=== PATIENT | female | born 1960 | race Caucasian/White ===

== ENCOUNTER 2020-10-24 10:18 | Outpatient (REF) | payer BC, SELFPAY ==
[2020-10-24 10:56] LABS: MANUAL DIFF FLAG NO
[2020-10-24 11:01] LABS: Basophils Percent Auto 0.5 % (0-2); Eosinophils Absolute Auto 0.2 X10*3/uL (0.0-0.4); Hematocrit 40.7 % (37-47); Hemoglobin 13.7 g/dl (12.0-16.0); Imm Gran Abs Auto 0.03 X10*3/uL (0.00-0.03); Imm Gran Pct Auto 0.4 % (0.0-0.4); Lymphocytes Absolute Auto 1.2 X10*3/uL (1.2-4.9); Lymphocytes Percent Auto 15.5 % (20-40); Mean Corpuscular HGB Conc 33.7 g/dl (31.0-35.0); Mean Corpuscular Hemoglobin 29.5 pg (27.0-33.0); Mean Corpuscular Volume 87.5 fL (80-98); Mean Platelet Volume 9.5 fL (9.4-12.3); Monocytes Absolute Auto 0.5 X10*3/uL (0.1-1.2); Monocytes Percent Auto 6.1 % (2-11); Neutrophils Absolute Auto 5.7 X10*3/uL (2.0-8.3); Neutrophils Percent Auto 74.5 % (45-73); Platelet Count 249 X10*3/uL (160-400); Red Blood Count 4.65 X10*6/uL (4.20-5.50); Red Cell Distribution Width 12.5 % (11.0-16.0); White Blood Count 7.6 X10*3/uL (4.8-10.8)
[2020-10-24 11:20] LABS: Alanine Aminotransferase 21 U/L (0-31); Albumin Level 4.3 g/dL (3.5-5.0); Alkaline Phosphatase 110 U/L (39-117); Anion Gap 14 (12-20); Aspartate Amino Transferase 22 U/L (5-31); Bilirubin Total 0.5 mg/dL (0.0-1.0); Blood Urea Nitrogen 15 mg/dL (9-16); C Reactive Protein 0.56 mg/dL (< or = 0.50); Calcium 9.2 mg/dL (8.4-10.2); Carbon Dioxide 27 mmol/L (22-29); Chloride 105 mmol/L (96-108); Estimated Glomerular Filt Rate > 60; Glucose Random 125 mg/dL (60-115); Potassium 4.5 mmol/l (3.3-5.1); Sodium 141 mmol/L (135-145); Total Protein 7.4 g/dL (6.5-8.0)
[2020-10-24 11:52] LABS: Erythrocyte Sedimentation Rate 13 MM/HR (0-20)
== END 2020-10-24 10:19 | disposition home or self-care (01) ==
LOC: HO.LAB 10:18
PROVIDERS: PCP Internal Medicine; Visit Provider Internal Medicine Rheumatology
DX: M05.9 Rheumatoid arthritis with rheumatoid factor, unspecified (principal)
CPT/HCPCS: 36415; 80053; 85025; 85652; 86140

== ENCOUNTER 2021-01-13 12:05 | Outpatient (REF) | payer BC, SELFPAY ==
[2021-01-13 12:58] LABS: MANUAL DIFF FLAG NO
[2021-01-13 13:06] LABS: Basophils Percent Auto 0.3 % (0-2); Eosinophils Absolute Auto 0.2 X10*3/uL (0.0-0.4); Eosinophils Percent Auto 3.4 % (0-4); Hematocrit 38.3 % (37-47); Hemoglobin 12.5 g/dl (12.0-16.0); Imm Gran Abs Auto 0.02 X10*3/uL (0.00-0.03); Imm Gran Pct Auto 0.3 % (0.0-0.4); Lymphocytes Absolute Auto 1.1 X10*3/uL (1.2-4.9); Lymphocytes Percent Auto 16.7 % (20-40); Mean Corpuscular HGB Conc 32.6 g/dl (31.0-35.0); Mean Corpuscular Hemoglobin 28.6 pg (27.0-33.0); Mean Corpuscular Volume 87.6 fL (80-98); Mean Platelet Volume 9.8 fL (9.4-12.3); Monocytes Absolute Auto 0.5 X10*3/uL (0.1-1.2); Monocytes Percent Auto 7.5 % (2-11); Neutrophils Absolute Auto 4.9 X10*3/uL (2.0-8.3); Neutrophils Percent Auto 71.8 % (45-73); Platelet Count 252 X10*3/uL (160-400); Red Blood Count 4.37 X10*6/uL (4.20-5.50); Red Cell Distribution Width 12.6 % (11.0-16.0); White Blood Count 6.8 X10*3/uL (4.8-10.8)
[2021-01-13 14:11] LABS: Erythrocyte Sedimentation Rate 29 MM/HR (0-20)
[2021-01-13 18:21] LABS: Alanine Aminotransferase 19 U/L (0-31); Alkaline Phosphatase 135 U/L (39-117); Anion Gap 11 (12-20); Aspartate Amino Transferase 22 U/L (5-31); Bilirubin Total 0.6 mg/dL (0.0-1.0); Blood Urea Nitrogen 8 mg/dL (9-16); Calcium 9.2 mg/dL (8.4-10.2); Carbon Dioxide 28 mmol/L (22-29); Chloride 105 mmol/L (96-108); Estimated Glomerular Filt Rate > 60; Glucose Random 105 mg/dL (60-115); Potassium 4.4 mmol/L (3.3-5.1); Sodium 140 mmol/L (135-145); Total Protein 7.3 g/dL (6.5-8.0)
[2021-01-14 13:52] LABS: CRP High Sensitivity >10.0 mg/L
== END 2021-01-13 12:06 | disposition home or self-care (01) ==
LOC: HO.LAB 12:05
PROVIDERS: Absent Provider Internal Medicine Rheumatology; PCP Internal Medicine; Visit Provider Internal Medicine Rheumatology
DX: Z00.00 Encounter for general adult medical examination without abnormal findings (principal); M05.9 Rheumatoid arthritis with rheumatoid factor, unspecified; E03.9 Hypothyroidism, unspecified; R73.01 Impaired fasting glucose
CPT/HCPCS: 36415; 80053; 80061; 84443; 85025; 85652; 86140; 86141

== ENCOUNTER 2021-05-10 12:10 | Outpatient (REF) | payer BC, SELFPAY ==
--- NOTE | ~2021-05-10 | MM_ITS ---
EXAMINATION: MM DIAGNOSTIC DIGITAL BREAST TOMOSYNTHESIS, BILATERAL CLINICAL INFORMATION: Due for yearly. Follow-up probable benign calcifications identified in number left breast upper outer quadrant mid depth. 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 The lifetime risk of breast cancer based on the Tyrer-Cuzick Model is 27%. COMPARISON: Mammography: 05/06/2020, 09/02/2019, 02/28/2019, 02/18/2019 (BI-RADS 0), 12/25/2017 TECHNIQUE: Digital breast tomosynthesis is performed in both the craniocaudal and mediolateral oblique views along with computer-aided detection (CAD). Synthesized 2D images are generated from the tomosynthesis. Additional magnification views left breast are obtained in the CC and ML x2 projections. FINDINGS: There are scattered areas of fibroglandular density (ACR BI-RADS breast composition Category b). There are post surgical changes right breast with stable scarring mid upper outer quadrant. Parenchymal pattern is similar to prior studies. Neither breast shows interval mass or architectural abnormality or developing density. Calcifications for follow-up left breast mid upper outer quadrant are unremarkable and stable and now considered benign. No increasing calcifications. There are benign calcifications scattered outer left and central and outer right breast. There is digital processing artifact on synthesized left MLO view without correlate on tomography or additional magnification view. Results are provided to the patient at time of visit by the technologist. MM/MM tomosynthesis diagnostic BI IMPRESSION: 1. No mammographic evidence of malignancy. 2. Stable postsurgical changes upper outer right breast. 3. Left breast calcifications for follow-up are stable from prior diagnostic studies and considered to be benign. ASSESSMENT: BI-RADS 2: Benign RECOMMENDATION: 1. Routine annual mammography screening. 2. The lifetime risk of breast cancer based on the Tyrer-Cuzick Model is 27%. Additional annual adjunct screening with breast MRI may be of benefit in women with a risk score of 20% or greater. This patient's information was entered into a reminder system with a target due date for their next mammogram.
== END 2021-05-10 12:11 | disposition home or self-care (01) ==
LOC: HO.MAMMO 12:10
PROVIDERS: Visit Provider Internal Medicine
DX: R92.1 Mammographic calcification found on diagnostic imaging of breast (principal)
CPT/HCPCS: 77062; 77066

== ENCOUNTER 2021-06-05 09:58 | Outpatient (REF) | payer BC, SELFPAY ==
[2021-06-05 10:26] LABS: MANUAL DIFF FLAG NO
[2021-06-05 10:43] LABS: Basophils Percent Auto 0.4 % (0-2); Eosinophils Absolute Auto 0.2 X10*3/uL (0.0-0.4); Eosinophils Percent Auto 2.8 % (0-4); Hematocrit 39.2 % (37-47); Hemoglobin 13.1 g/dl (12.0-16.0); Imm Gran Abs Auto 0.01 X10*3/uL (0.00-0.03); Imm Gran Pct Auto 0.1 % (0.0-0.4); Lymphocytes Absolute Auto 1.2 X10*3/uL (1.2-4.9); Lymphocytes Percent Auto 16.7 % (20-40); Mean Corpuscular HGB Conc 33.4 g/dl (31.0-35.0); Mean Corpuscular Hemoglobin 28.5 pg (27.0-33.0); Mean Corpuscular Volume 85.4 fL (80-98); Mean Platelet Volume 9.9 fL (9.4-12.3); Monocytes Absolute Auto 0.5 X10*3/uL (0.1-1.2); Monocytes Percent Auto 7.4 % (2-11); Neutrophils Absolute Auto 5.2 X10*3/uL (2.0-8.3); Neutrophils Percent Auto 72.6 % (45-73); Platelet Count 266 X10*3/uL (160-400); Red Blood Count 4.59 X10*6/uL (4.20-5.50); Red Cell Distribution Width 12.5 % (11.0-16.0); White Blood Count 7.2 X10*3/uL (4.8-10.8)
[2021-06-05 10:56] LABS: Alanine Aminotransferase 16 U/L (0-31); Alkaline Phosphatase 129 U/L (39-117); Anion Gap 12 (12-20); Aspartate Amino Transferase 22 U/L (5-31); Bilirubin Total 0.5 mg/dL (0.0-1.0); Blood Urea Nitrogen 8 mg/dL (9-16); Calcium 9.2 mg/dL (8.4-10.2); Carbon Dioxide 25 mmol/L (22-29); Chloride 107 mmol/L (96-108); Estimated Glomerular Filt Rate > 60; Glucose Random 117 mg/dL (60-115); Potassium 4.2 mmol/L (3.3-5.1); Sodium 140 mmol/L (135-145); Total Protein 7.5 g/dL (6.5-8.0)
[2021-06-05 10:58] LABS: Cholesterol 168 mg/dL; HDL Cholesterol 51 mg/dL; LDL Cholesterol Calculated 104 mg/dl; Triglycerides 65 mg/dL
[2021-06-05 11:20] LABS: TSH reflex Free T4 0.08 uIU/mL (0.32-4.0); Vitamin D 25-OH Total 43.3 ng/mL (>30)
[2021-06-05 12:00] LABS: Free T4 (Free Thyroxine) 1.73 ng/dL (0.71-1.85)
[2021-06-05 12:25] LABS: Erythrocyte Sedimentation Rate 23 MM/HR (0-20)
[2021-06-08 04:42] LABS: CRP High Sensitivity 8.8 mg/L
== END 2021-06-05 09:59 | disposition home or self-care (01) ==
LOC: HO.LAB 09:58
PROVIDERS: Absent Provider Internal Medicine; PCP Internal Medicine; Visit Provider Internal Medicine Rheumatology
DX: E78.2 Mixed hyperlipidemia (principal); E55.9 Vitamin D deficiency, unspecified; M05.9 Rheumatoid arthritis with rheumatoid factor, unspecified
CPT/HCPCS: 36415; 80053; 80061; 82306; 84439; 84443; 85025; 85652; 86141

== ENCOUNTER 2021-07-05 15:58 | Outpatient (REF) | payer BC, SELFPAY ==
[2021-07-05 17:40] LABS: Thyroid Stimulating Hormone 0.14 uIU/mL (0.32-4.0)
== END 2021-07-05 15:59 | disposition home or self-care (01) ==
LOC: HO.LAB 15:58
PROVIDERS: PCP Internal Medicine; Visit Provider Internal Medicine
DX: E03.9 Hypothyroidism, unspecified (principal)
CPT/HCPCS: 36415; 84443

== ENCOUNTER 2021-09-11 10:33 | Outpatient (REF) | payer BC, SELFPAY ==
[2021-09-11 10:50] LABS: MANUAL DIFF FLAG NO
[2021-09-11 11:15] LABS: Basophils Percent Auto 0.3 % (0-2); Eosinophils Absolute Auto 0.1 X10*3/uL (0.0-0.4); Eosinophils Percent Auto 1.3 % (0-4); Hematocrit 39.7 % (37.0-47.0); Hemoglobin 13.2 g/dl (12.0-16.0); Imm Gran Abs Auto 0.01 X10*3/uL (0.00-0.03); Imm Gran Pct Auto 0.1 % (0.0-0.4); Lymphocytes Absolute Auto 1.2 X10*3/uL (1.2-4.9); Lymphocytes Percent Auto 16.7 % (20-40); Mean Corpuscular HGB Conc 33.2 g/dl (31.0-35.0); Mean Corpuscular Hemoglobin 29.1 pg (27.0-33.0); Mean Corpuscular Volume 87.6 fL (80.0-98.0); Mean Platelet Volume 9.7 fL (9.4-12.3); Monocytes Absolute Auto 0.4 X10*3/uL (0.1-1.2); Monocytes Percent Auto 6.3 % (2-11); Neutrophils Absolute Auto 5.2 x10*3/uL (2.0-8.3); Neutrophils Percent Auto 75.3 % (45-73); Platelet Count 233 X10*3/uL (160-400); Red Blood Count 4.53 X10*6/uL (4.20-5.50); Red Cell Distribution Width 13.2 % (11.0-16.0); White Blood Count 6.9 X10*3/uL (4.8-10.8)
[2021-09-11 12:00] LABS: Erythrocyte Sedimentation Rate 13 MM/HR (0-20)
[2021-09-11 12:16] LABS: Alanine Aminotransferase 15 U/L (0-31); Albumin Level 4.1 g/dL (3.5-5.0); Alkaline Phosphatase 108 U/L (39-117); Anion Gap 11 (12-20); Aspartate Amino Transferase 22 U/L (5-31); Bilirubin Total 0.6 mg/dL (0.0-1.0); Blood Urea Nitrogen 10 mg/dL (9-16); C Reactive Protein 0.34 mg/dL (< or = 0.50); Calcium 9.5 mg/dL (8.4-10.2); Carbon Dioxide 26 mmol/L (22-29); Chloride 107 mmol/L (96-108); Estimated Glomerular Filt Rate > 60; Glucose Random 114 mg/dL (60-115); Potassium 4.2 mmol/L (3.3-5.1); Sodium 140 mmol/L (135-145); Total Protein 7.3 g/dL (6.5-8.0)
[2021-09-11 12:37] LABS: Thyroid Stimulating Hormone 0.46 uIU/mL (0.32-4.0)
== END 2021-09-11 10:34 | disposition home or self-care (01) ==
LOC: HO.LAB 10:33
PROVIDERS: Absent Provider Internal Medicine Rheumatology; PCP Internal Medicine; Visit Provider Internal Medicine
DX: E03.9 Hypothyroidism, unspecified (principal); M05.9 Rheumatoid arthritis with rheumatoid factor, unspecified
CPT/HCPCS: 36415; 80053; 84443; 85025; 85652; 86140

== ENCOUNTER 2022-05-11 08:02 | Outpatient (REF) | payer BC, SELFPAY ==
--- NOTE | ~2022-05-11 | MM_ITS ---
EXAMINATION: MM SCREENING DIGITAL BREAST TOMOSYNTHESIS, BILATERAL CLINICAL INFORMATION: Screening. Asymptomatic. 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 COMPARISON: Mammography: 05/10/2021, 05/06/2020, 09/02/2019, 02/28/2019, 02/18/2019, 12/25/2017 TECHNIQUE: Digital breast tomosynthesis is performed in both the craniocaudal and mediolateral oblique views along with computer-aided detection (CAD). Synthesized 2D images are generated from the tomosynthesis. FINDINGS: There are scattered areas of fibroglandular density (ACR BI-RADS breast composition Category b). Parenchymal pattern is similar to prior studies. There is stable chronic scarring mid upper outer right breast consistent with the prior excisional biopsy. Fine digital processing artifact pseudo calcification is present on lateral side of scar on synthesized CC view without tomography or MLO correlate. Neither breast shows interval mass or architectural abnormality or abnormal calcifications. The axilla are unremarkable. MM/MM tomosynthesis screening BI IMPRESSION: No significant changes from prior exams. Postsurgical changes right breast. ASSESSMENT: BI-RADS 2: Benign RECOMMENDATION: Routine annual mammography screening. This patient's information was entered into a reminder system with a target due date for their next mammogram.
== END 2022-05-11 08:03 | disposition home or self-care (01) ==
LOC: HO.MAMMO 08:02
PROVIDERS: PCP Internal Medicine; Visit Provider Internal Medicine
DX: Z12.31 Encounter for screening mammogram for malignant neoplasm of breast (principal)
CPT/HCPCS: 77063; 77067

== ENCOUNTER → 2023-06-19 08:00 | Outpatient (BNV) | payer BC, SELFPAY | PROVIDERS: PCP Internal Medicine; Visit Provider Radiology Diagnostic Radiology | DX: Z12.31 Encounter for screening mammogram for malignant neoplasm of breast (principal) | CPT/HCPCS: 77063; 77067 ==

== ENCOUNTER 2023-06-19 08:04 | Outpatient (REF) | payer BC, SELFPAY ==
--- NOTE | ~2023-06-19 | MM_ITS ---
EXAMINATION: MM SCREENING DIGITAL BREAST TOMOSYNTHESIS, BILATERAL CLINICAL INFORMATION: Screening. Asymptomatic. 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 COMPARISON: Mammography: 05/11/2022, 05/10/2021, 05/06/2020, 09/02/2019, 02/28/2019, 02/18/2019, 12/25/2017 TECHNIQUE: Digital breast tomosynthesis is performed in both the craniocaudal and mediolateral oblique views along with computer-aided detection (CAD). Synthesized 2D images are generated from the tomosynthesis. FINDINGS: There are scattered areas of fibroglandular density (ACR BI-RADS breast composition Category b). Stable post lumpectomy and treatment related changes upper outer right breast, with no change in appearance. There are no suspicious masses, suspicious grouped calcifications, or developing areas of architectural distortion. The parenchymal pattern is stable from prior exams. MM/MM tomosynthesis screening BI IMPRESSION: No mammographic evidence of malignancy. Stable benign findings. ASSESSMENT: BI-RADS BI-RADS 2 - Benign Findings RECOMMENDATION: Routine annual mammography screening. 1 year F/U This examination should not preclude the clinical evaluation of a suspicious palpable abnormality. This patient's information was entered into a reminder system with a target due date for their next mammogram.
== END 2023-06-19 08:05 | disposition home or self-care (01) ==
LOC: HO.MAMMO 08:04
PROVIDERS: PCP Internal Medicine; Visit Provider Internal Medicine
DX: Z12.31 Encounter for screening mammogram for malignant neoplasm of breast (principal)
CPT/HCPCS: 77063; 77067

== ENCOUNTER 2024-07-03 13:49 | Outpatient (REF) | payer BC, SELFPAY ==
--- NOTE | ~2024-07-03 | MM_ITS ---
EXAMINATION: BONE DENSITOMETRY CLINICAL INDICATION: Rheumatoid arthritis involving multiple sites with positive rheumatoid. COMPARISON: Baseline BD dated 09/03/2008. TECHNIQUE: Using a [employer] DXA System (software version: 13.1) manufactured by [employer], dual-energy x-ray absorptiometry was performed of the lumbar spine and left hip. The images are of good technical quality. Summary results are attached. FINDINGS: LEFT FEMUR, NECK: Current: BMD 0.918 g/cm2, Z-score 0.3, T-score -0.9, normal. Baseline: BMD 1.057 g/cm2. LEFT FEMUR, TOTAL: Current: BMD 0.945 g/cm2, Z-score 0.4, T-score -0.5, normal, 17.8% decrease from baseline (<5% change is not significant). Baseline: BMD 1.150 g/cm2. AP SPINE L1-L4: Current: BMD 1.028 g/cm2, Z-score -0.1, T-score -1.3, osteopenia, 17.2% decrease from baseline (<5% change is not significant). Baseline: BMD 1.242 g/cm2. IDENTIFIED RISK FACTORS: Menopause, rheumatoid arthritis. HISTORY OF FRACTURE: None listed. MEDICATIONS: Vitamin D. MM/XR DEXA axial skeleton IMPRESSION: 1. DIAGNOSIS: Osteopenia based on the lowest T-score value of -1.3 in the lumbar spine applying World Health Organization criteria. 2. 10-YEAR FRACTURE RISK PREDICTION, FRAX: Major osteoporotic fracture (clinical spine, forearm, hip or shoulder) 9.8%. Hip fracture 0.6%. 3. Treatment Recommendations: NOF guidelines recommend consideration for treatment in postmenopausal women and men age 50 and older presenting with the following: -A hip or vertebral (clinical or morphometric) fracture. -T-score less than or equal to -2.5 at the femoral neck or spine after appropriate evaluation to exclude secondary causes. -Low bone mass at the hip or spine and a 10-year fracture probability by FRAX of greater than or equal to 3% for hip fracture or greater than or equal to 20% for major osteoporotic fracture based on the [place] adapted WHO algorithm. 4. Other Recommendations: All treatment decisions require clinical judgment and consideration of individual patient factors, including patient preferences, comorbidities, previous drug use, risk factors not captured in the FRAX model (e.g. frailty, falls, vitamin D deficiency, increased bone turnover, interval significant decline in bone density) and possible under or overestimation of fracture risk by FRAX. Additional medical evaluation for secondary cause of low bone mineral density may be appropriate. FUTURE SCAN RECOMMENDATION: People with diagnosed cases of osteoporosis or at high risk for fracture should have regular bone mineral density tests. For patients eligible for Medicare, routine testing is allowed once every 2 years. The testing frequency can be increased to one year for patients who have rapidly progressing disease, those who are receiving or discontinuing medical therapy to restore bone mass, or have additional risk factors. Electronically signed by: Marcelino Tracy MD 07/16/2024 08:34 AM EDT
--- NOTE | ~2024-07-03 | MM_ITS ---
EXAMINATION: MM SCREENING DIGITAL BREAST TOMOSYNTHESIS, BILATERAL CLINICAL INFORMATION: Screening. Asymptomatic. COMPARISON: Mammography: Comparison is made with available priors TECHNIQUE: Digital breast mammography with tomosynthesis is performed in both the craniocaudal and mediolateral oblique views along with computer-aided detection (CAD). FINDINGS: There are scattered areas of fibroglandular density (ACR BI-RADS breast composition Category b). Post surgical changes to the upper outer right breast are stable. There are no significant masses, abnormal calcifications, or other abnormalities. MM/MM tomosynthesis screening BI IMPRESSION: No mammographic evidence of malignancy. ASSESSMENT: BI-RADS BI-RADS 2 - Benign Findings RECOMMENDATION: Routine annual mammography screening. 1 year F/U This examination should not preclude the clinical evaluation of a suspicious palpable abnormality. This patient's information was entered into a reminder system with a target due date for their next mammogram. Electronically signed by: Ani Hyatt DO 07/15/2024 05:15 PM EDT
== END 2024-07-03 13:50 | disposition home or self-care (01) ==
LOC: HO.MAMMO 13:49
PROVIDERS: PCP Internal Medicine; Visit Provider Internal Medicine
DX: Z13.820 Encounter for screening for osteoporosis (principal); Z78.0 Asymptomatic menopausal state; M05.79 Rheumatoid arthritis with rheumatoid factor of multiple sites without organ or systems involvement
CPT/HCPCS: 77063; 77067; 77080

== ENCOUNTER → 2024-07-03 14:30 | Outpatient (BNV) | payer BC, SELFPAY | PROVIDERS: PCP Internal Medicine; Visit Provider Internal Medicine | DX: Z12.31 Encounter for screening mammogram for malignant neoplasm of breast (principal) | CPT/HCPCS: 77063; 77067 ==

== ENCOUNTER 2025-08-21 07:39 | Outpatient (REF) | payer BC, SELFPAY ==
--- OUTSIDE RECORDS SUMMARY | 2024-11-11 08:30 | XMS_ITS ---
[facility] Address [address] [facility] [address] [place] [address] Care Team Providers Care Sheet Rock Applier Name Role Phone JELANI SIFUENTES MD Primary Care Provider Unavailab Tammi Meza Unavailable [phone] REASON FOR VISIT WSC: COLO 5 YR FHX COLON POLYPS INS [facility] PCP DR. SIFUENTES PREP COLYTE KO Encounters Encounter Location Date Provider Diagnosis [facility] [address] [place] [address] 11/11/2024 Tammi Bernabe Plan Of Treatment No Information Progress Notes * ZAKI SUEOB:[birth year] (65 yo F)Acc No.[id number]:11/11/2024 Progress Notes Patient: AMBIKA LOPEZ Provider: Chantal Sharpe M.D. :1960 A ge:64 Y S ex:Female Date:11/11/2024 Address:[phone] Pcp:JELANI SIFUENTES MD Subjective: * Chief Complaints: * 1 . WSC: COLO 5 YR FHX COLON POLYPS INS [facility] PCP DR. SIFUENTES PREP COLYTE KO. * Medical History: Objective: * Vitals: Assessment: Plan: * Treatment: * * Electronic signature of Stephani Bernabe MD on 08/21/2025 at 07:42 AM EST Sign off status: Pending * Provider: Chantal Sharpe M.D. Date: 0 11/11/2024 Generated for Shy rosenberg/Alvino/Lyle on: 1 10/21/2024 07:42 AM EST
--- OUTSIDE RECORDS SUMMARY | 2025-02-15 16:30 | XMS_ITS ---
Author Organization [facility] Address [address] [facility] [address] [place] [address] Care Team Providers Care Building Rental Superintendent Name Role Phone JELANI SIFUENTES MD Primary Care Provider Unavailab Tammi Meza Unavailable [phone] Migration, Provider Unavailable Unavailable Allergies Allergen (clinical drug ingredient) Drug/Non Drug Allergy documented on EMR Reaction Allergy Type Onset Date Status sulfamethoxazole / trimethoprim Bactrim Unknown Drug Allergy Active REASON FOR VISIT Multum To Medispan Conversion Encounter Medications Medication SIG (Take, Route, Frequency, Duration) Notes Start Date End Date Status Vitamin E *Please review and pick correct strength-formulat ion from Medispan options. If intended option is not shown, discontinue and re-order from Quick Search* Active Methotrexate *Please review and pick correct strength-formulat ion from Medispan options. If intended option is not shown, discontinue and re-order from Quick Search* Active Folic Acid *Please review and pick correct strength-formulat ion from Medispan options. If intended option is not shown, discontinue and re-order from Quick Search* Active Levoxyl *Please review and pick correct strength-formulat ion from Evogenspan options. If intended option is not shown, discontinue and re-order from Quick Search* Active ANUSOL HC SUPPOSITOIES DIRECTED BID; Duration: 15 DAYS *Please review for potential replacement for e-prescription and drug interaction check* 03/11/2009 Active Golytely - DIRECTED ORALLY PRIOR TO COLONOSCOPY; Duration: 1 DAY *Please review and pick correct strength-formulat ion from Statuslyan options. If intended option is not shown, discontinue and re-order from Quick Search* 10/22/2024 Active PEG-3350 WITH ELECTROLYTES - DIRECTED ORALLY EVERY 15 MINUTES; Duration: 1 DAYS *Please review for potential replacement for e-prescription and drug interaction check* 09/18/2019 Active Vitamin B Complex 1 TAB QD *Please review and pick correct strength-formulat ion from Evogenspan options. If intended option is not shown, discontinue and re-order from Quick Search* Active Humira *Please review and pick correct strength-formulat ion from Evogenspan options. If intended option is not shown, discontinue and re-order from Quick Search* Active PROBIOTIC FORMULA (BACILLUS COAGULANS) - 1 CAP(S) ORALLY ONCE A DAY *Please review for potential replacement for e-prescription and drug interaction check* Active Flagyl 500 MG 1 TAB(S) ORALLY Q8H; Duration: 14 DAY(S) *Please review and pick correct strength-formulat ion from Statuslyan options. If intended option is not shown, discontinue and re-order from Quick Search* 01/01/2009 Active Levoxyl *Please review and pick correct strength-formulat ion from Evogenspan options. If intended option is not shown, discontinue and re-order from Quick Search* Active Vitamin E *Please review and pick correct strength-formulat ion from Statuslyan options. If intended option is not shown, discontinue and re-order from Quick Search* Active Vitamin D (Ergocalciferol) *Please review and pick correct strength-formulat ion from Statuslyan options. If intended option is not shown, discontinue and re-order from Quick Search* Active Fish Oil 500 MG 2 cap(s) orally 2 times a day; Duration: 30 day(s) Active Ciprofloxacin HCl 500 MG 1 tab(s) orally Q12H; Duration: 10 day(s) 01/01/2009 Active Vitamin D (Ergocalciferol) *Please review and pick correct strength-formulat ion from Statuslyan options. If intended option is not shown, discontinue and re-order from Quick Search* Active Citrucel 500 MG 2 tab(s) orally once a day; Duration: 7 day(s) 12/23/2008 Active Folic Acid *Please review and pick correct strength-formulat ion from Medispan options. If intended option is not shown, discontinue and re-order from Quick Search* Not-Taking Encounters Encounter Location Date Provider Diagnosis [facility] [address] [place] [address] [address] [place] [address] 02/15/2025 Provider Migration Diarrhea 787.91 Assessments Encounter Date Diagnosis (ICD Code) Assessment Notes Treatment Notes Treatment Clinical Notes Section Notes 02/15/2025 Diarrhea (ICD9-CM - 787.91) Plan Of Treatment Medication Medication Name Sig Start Date Stop Date Notes Golytely - DIRECTED ORALLY PRIOR TO COLONOSCOPY; Duration: 1 DAY 10/22/2024 *Please review and pick correct strength-formulation from Medispan options. If intended option is not shown, discontinue and re-order from Quick Search* PEG-3350 WITH ELECTROLYTES - DIRECTED ORALLY EVERY 15 MINUTES; Duration: 1 DAYS 09/18/2019 *Please review for potential replacement for e-prescription and drug interaction check* Flagyl 500 MG 1 TAB(S) ORALLY Q8H; Duration: 14 DAY(S) 01/01/2009 *Please review and pick correct strength-formulation from Medispan options. If intended option is not shown, discontinue and re-order from Quick Search* Ciprofloxacin HCl 500 MG 1 tab(s) orally Q12H; Duration: 10 day(s) 01/01/2009 Citrucel 500 MG 2 tab(s) orally once a day; Duration: 7 day(s) 12/23/2008 Progress Notes * ZAKI SUEOB:[birth year] (65 yo F)Acc No.[id number]:02/15/2025 Patient: AMBIKA LOPEZ Provider: :1960 A ge:65 Y S ex:Female Date:02/15/2025 Address:[address] [place] [address] , [address], [place], [id number] Pcp:JELANI SIFUENTES MD Subjective: * Chief Complaints: * 1 . Multum To Medispan Conversion Encounter. * Medical History: * Medications: Christy Owens , Notes to Pharmacist: *Please review and pick correct strength-formulation from Medispan options. If intended option is not shown, discontinue and re-order from Quick Search*, Taking Methotrexate , Notes to Pharmacist: *Please review and pick correct strength-formulation from Medispan options. If intended option is not shown, discontinue and re-order from Quick Search*, Taking Folic Acid , Notes to Pharmacist: *Please review and pick correct strength-formulation from Medispan options. If intended option is not shown, discontinue and re-order from Quick Search*, Taking Levoxyl , Notes to Pharmacist: *Please review and pick correct strength-formulation from Medispan options. If intended option is not shown, discontinue and re-order from Quick Search*, Taking ANUSOL HC SUPPOSITOIES DIRECTED BID , Notes to Pharmacist: *Please review for potential replacement for e-prescription and drug interaction check*, Taking Vitamin E , Notes to Pharmacist: *Please review and pick correct strength-formulation from Medispan options. If intended option is not shown, discontinue and re-order from Quick Search*, Taking Vitamin D (Ergocalciferol) , Notes to Pharmacist: *Please review and pick correct strength-formulation from Medispan options. If intended option is not shown, discontinue and re-order from Quick Search*, Taking Levoxyl , Notes to Pharmacist: *Please review and pick correct strength-formulation from Medispan options. If intended option is not shown, discontinue and re-order from Quick Search*, Taking Vitamin E , Notes to Pharmacist: *Please review and pick correct strength-formulation from Medispan options. If intended option is not shown, discontinue and re-order from Quick Search*, Taking Vitamin D (Ergocalciferol) , Notes to Pharmacist: *Please review and pick correct strength-formulation from Medispan options. If intended option is not shown, discontinue and re-order from Quick Search*, Taking Fish Oil 500 MG Capsule 2 cap(s) orally 2 times a day , Taking Vitamin B Complex 1 TAB QD , Notes to Pharmacist: *Please review and pick correct strength-formulation from Medispan options. If intended option is not shown, discontinue and re-order from Quick Search*, Taking PROBIOTIC FORMULA (BACILLUS COAGULANS) - CAPSULE 1 CAP(S) ORALLY ONCE A DAY , Notes to Pharmacist: *Please review for potential replacement for e-prescription and drug interaction check*, Not- Taking Folic Acid , Notes to Pharmacist: *Please review and pick correct strength-formulation from Medispan options. If intended option is not shown, discontinue and re-order from Quick Search* * Allergies: B actrim. Objective: * Vitals: Assessment: * Assessment: 1. D iakevin - 787.91 (Primary) Plan: * Treatment: 2. O thers Start Ciprofloxacin HCl Tablet, 500 MG, 1 tab(s), orally, Q12H, 10 day(s), 20, Refills 0; S tart Flagyl TABLET, 500 MG, 1 TAB(S), ORALLY, Q8H, 14 DAY(S), 42, Refills 0, Notes to Pharmacist: *Please review and pick correct strength-formulation from Medispan options. If intended option is not shown, discontinue and re-order from Quick Search*; S tart PEG-3350 WITH ELECTROLYTES POWDER FOR RECONSTITUTION, -, DIRECTED, ORALLY, EVERY 15 MINUTES, 1 DAYS, 1, Notes to Pharmacist: *Please review for potential replacement for e-prescription and drug interaction check*; S tart Golytely POWDER FOR RECONSTITUTION, -, DIRECTED, ORALLY, PRIOR TO COLONOSCOPY, 1 DAY, 1, Refills 0, Notes to Pharmacist: *Please review and pick correct strength-formulation from Medispan options. If intended option is not shown, discontinue and re-order from Quick Search*. * * Electronic signature of Prov ider Migration on 08/21/2025 at 07:44 AM EST Sign off status: Pending * Provider: Date: 0 02/15/2025 Generated for Shy rosenberg/Alvino/Lyle on: 10/21/2024 07:44 AM EST
--- OUTSIDE RECORDS SUMMARY | 2025-03-21 10:08 | XMS_ITS ---
Author Organization [facility] Address [address] [place], [place] [id number] Care Team Providers Care Nursing Home Aide Name Role Phone JELANI SIFUENTES Primary Care Provider [phone] REASON FOR VISIT Lab results Encounters Encounter Location Date Provider Diagnosis [facility] [address] [place] [address] 03/21/2025 JELANI SIFUENTES Type 2 diabetes mellitus without complication, without long-term current use of insulin E11.9 and Acquired hypothyroidism E03.9 ASSESSMENTS Encounter Date Diagnosis Assessment Notes Treatment Notes Treatment Clinical Notes Section Notes 03/21/2025 Type 2 diabetes mellitus without complication, without long-term current use of insulin (ICD-10 - E11.9) 03/21/2025 Acquired hypothyroidism (ICD-10 - E03.9) PLAN OF TREATMENT Next Appt Details Provider Name:JELANI SIFUENTES , 09/16/2025 08:45:00 AM, [address] [place], [address],
--- OUTSIDE RECORDS SUMMARY | 2025-04-02 15:28 | XMS_ITS ---
Author Organization [facility] Address [address] [place], [place] [id number] Care Team Providers Care Mobile Security Specialist Name Role Phone JELANI SIFUENTES Primary Care Provider REASON FOR VISIT Info regarding Sowmya Sue Encounters Encounter Location Date Provider Diagnosis [address] [address] 04/02/2025 JELANI SIFUENTES PLAN OF TREATMENT Next Appt Details Provider Name:JELANI SIFUENTES , 09/16/2025 08:45:00 AM, [address] [place] [address], [phone],
--- OUTSIDE RECORDS SUMMARY | 2025-04-04 06:19 | XMS_ITS ---
Author Organization [facility] Address [address] [place], [place] [id number] Care Team Providers Care Gear Machine Operator General Name Role Phone JELANI SIFUENTES Primary Care Provider [phone] REASON FOR VISIT Additional note re: Sowmya and a question for myself Encounters Encounter Location Date Provider Diagnosis [facility] [address] [place] [address] 04/04/2025 JELANI SIFUENTES PLAN OF TREATMENT Next Appt Details Provider Name:JELANI SIFUENTES , 09/16/2025 08:45:00 AM, [address] [place], [address],
--- OUTSIDE RECORDS SUMMARY | 2025-05-28 12:43 | XMS_ITS ---
Author Organization [facility] Address [address] [place], [place] [phone] Care Team Providers Care Manager Of Allied Health Services Name Role Phone JELANI SIFUENTES Primary Care Provider [phone] REASON FOR VISIT Update Demographics - Personal Info Encounters Encounter Location Date Provider Diagnosis [facility] [address] [place] [address] 05/28/2025 JELANI SIFUENTES PLAN OF TREATMENT Next Appt Details Provider Name:JELANI SIFUENTES , 09/16/2025 08:45:00 AM, [address] [place], [address],
--- OUTSIDE RECORDS SUMMARY | 2025-06-11 05:44 | XMS_ITS ---
Author Organization [facility] Address [address] [place], [place] [id number] Care Team Providers Care Freight Caller Name Role Phone JELANI SIFUENTES Primary Care Provider REASON FOR VISIT RS Appt Encounters Encounter Location Date Provider Diagnosis [address] [address] 06/11/2025 JELANI SIFUENTES PLAN OF TREATMENT Next Appt Details Provider Name:JELANI SIFUENTES , 09/16/2025 08:45:00 AM, [address] [place], [address],
--- OUTSIDE RECORDS SUMMARY | 2025-06-12 10:30 | XMS_ITS ---
Author Organization [facility] Address [address] [place], [place] [id number] Care Team Providers Care Websphere Portal Architect Name Role Phone JELANI SIFUENTES Primary Care Provider REASON FOR VISIT 41/3 MO Encounters Encounter Location Date Provider Diagnosis [facility] [address] [place] [phone] 06/12/2025 JELANI SIFUENTES PLAN OF TREATMENT Next Appt Details Provider Name:JELANI SIFUENTES , 09/16/2025 08:45:00 AM, [address] [place], [address],
--- OUTSIDE RECORDS SUMMARY | 2025-06-12 10:45 | XMS_ITS ---
Author Organization [facility] Address [address], [place] [id number] Care Team Providers Care Database Marketing Specialist Name Role Phone JELANI SIFUENTES Primary Care Provider REASON FOR VISIT 41/ 3mo Encounters Encounter Location Date Provider Diagnosis [facility] [address] [place] [phone] 06/12/2025 JELANI SIFUENTES PLAN OF TREATMENT Next Appt Details Provider Name:JELANI SIFUENTES , 09/16/2025 08:45:00 AM, [address] [place], [address],
--- OUTSIDE RECORDS SUMMARY | 2025-06-18 08:45 | XMS_ITS ---
Author Organization [facility] Address [address] [place], [place] [id number] Care Team Providers Care Joint Yarner Name Role Phone JELANI SIFUENTES Primary Care Provider ALLERGIES Allergen (clinical drug ingredient) Drug/Non Drug Allergy documented on EMR Reaction Allergy Type Onset Date Status amoxicillin Amoxicillin Unknown Drug Allergy Act rowan Sulfamethoxazole Altered Heart Rate PATIENT STATES THAT SHE HAD A RAPID HEARTBEAT AND HER FACE TURNED RED Drug Allergy Active trimethoprim Trimethoprim Unknown Drug Allergy A ctive Ragweed Unknown Allergy Active REASON FOR VISIT f/u, declines flu vacc for today - will get a local pharm MEDICATIONS Medication SIG (Take, Route, Frequency, Duration) Notes Start Date End Date Status Aspirin 81 MG chew 1 tablet by ora l route every day Oral 12/19/2022 Active OneTouch Verio Flex System test by fingerstick route 3 times a day MISCELLANEOUS 02/17/2023 06/29/2025 Active ONE TOUCH DELICA PLUS 30G 30 gauge TEST 3 TIMES DAILY AND DIRECTED MISCELL 01/26/2023 Active OneTouch Delica Plus [id number] - TEST 3 TIMES DAILY AND DIRECTED for 33 Active Urea 40 % 1 application as nee ded Externally Once a day for 30 day(s) 11/11/2024 Active Orencia 125 MG/ML inject 1 milliliter by subcutaneous route every week Subcutaneous Active metFORMIN HCl 500 MG 1 tablet with a nury l Orally Once a day for 90 day(s) 06/18/2025 Active Estradiol 0.1 MG/GM as directed Vaginal Active Triamcinolone Acetonide 0.1 % apply by TOPICAL route every day a thin film to the affected skin areas External 08/15/2022 Active Levothyroxine Sodium 150 MCG 1 tablet in the morning on an empty stomach Orally Once a day for 30 day(s) 06/18/2025 Active Nystatin 982829 UNIT/GM 1 application Ex ternally Twice a day for 30 day(s) 01/31/2025 Active OneTouch Verio - USE 1 STRIP THREE TI MES A DAY DIRECTED BY MD for 33 Active SOCIAL HISTORY Tobacco Use: Social History Observation Description Date Details (start date - stop date) Never Smoker NA - NA Sex Assigned At : Social History Observation Description Sex Assigned At Unknown Smoking Question Answer Notes Are you a: never smoker VITAL SIGNS Height 67.5 in 06/18/2025 Weight 180.0 lbs 06/18/2025 Blood pressure systolic 124 mm Hg 06/18/20 25 Blood pressure diastolic 72 mm Hg 025 BMI 27.77 kg/m2 06/18/2025 Encounters Encounter Location Date Provider Diagnosis [facility] [address] [place] [address] 06/18/2025 [facility] Type 2 diabetes mellitus without complication, without long-term current use of insulin E11.9 ; Acquired hypothyroidism E03.9 ; Rheumatoid arthritis, unspecified M06.9 and Anxiety F41.9 ASSESSMENTS Encounter Date Diagnosis Assessment Notes Treatment Notes Treatment Clinical Notes Section Notes 06/18/2025 Type 2 diabetes mellitus without complication, without long-term current use of insulin (ICD-10 - E11.9) 1. Type 2 diabetes mellitus: A1c suboptimal at 7.9. We decided to start metformin 500 mg once a day to start and we will plan to recheck her A1c in 3 months 2. Hypothyroidism: Suboptimal on current level of supplementation. Will change from 137 mg to 150 mg of levothyroxine and plan to recheck in 1 month 3. Rheumatoid arthritis: Stable on current number NCS. She is getting a new dictaphone operator but has good supply of all her medications at present 4. Anxiety: Coping well with situational stress at present. Support given today 06/18/2025 Acquired hypothyroidism (ICD-10 - E03.9) 1. Type 2 diabetes mellitus: A1c suboptimal at 7.9. We decided to start metformin 500 mg once a day to start and we will plan to recheck her A1c in 3 months 2. Hypothyroidism: Suboptimal on current level of supplementation. Will change from 137 mg to 150 mg of levothyroxine and plan to recheck in 1 month 3. Rheumatoid arthritis: Stable on current number NCS. She is getting a new dictaphone operator but has good supply of all her medications at present 4. Anxiety: Coping well with situational stress at present. Support given today 06/18/2025 Rheumatoid arthritis, unspecified (ICD-10 - M06.9) 1. Type 2 diabetes mellitus: A1c suboptimal at 7.9. We decided to start metformin 500 mg once a day to start and we will plan to recheck her A1c in 3 months 2. Hypothyroidism: Suboptimal on current level of supplementation. Will change from 137 mg to 150 mg of levothyroxine and plan to recheck in 1 month 3. Rheumatoid arthritis: Stable on current number NCS. She is getting a new dictaphone operator but has good supply of all her medications at present 4. Anxiety: Coping well with situational stress at present. Support given today 06/18/2025 Anxiety (ICD-10 - F41.9) 1. Type 2 diabetes mellitus: A1c suboptimal at 7.9. We decided to start metformin 500 mg once a day to start and we will plan to recheck her A1c in 3 months 2. Hypothyroidism: Suboptimal on current level of supplementation. Will change from 137 mg to 150 mg of levothyroxine and plan to recheck in 1 month 3. Rheumatoid arthritis: Stable on current number NCS. She is getting a new dictaphone operator but has good supply of all her medications at present 4. Anxiety: Coping well with situational stress at present. Support given today PLAN OF TREATMENT Medication Medication Name Sig Start Date Stop Date Notes Orencia 125 MG/ML inject 1 milliliter by subcutaneous route every week Subcutaneous metFORMIN HCl 500 MG 1 tablet with a nury l Orally Once a day for 90 day(s) 06/18/2025 Levothyroxine Sodium 137 MCG 1 tablet in the morning on an empty stomach Orally Once a day Levothyroxine Sodium 150 MCG 1 tablet in the morning on an empty stomach Orally Once a day for 30 day(s) 06/18/2025 Next Appt Details Provider Name:JELANI SIFUENTES , 09/16/2025 08:45:00 AM, [address] [place], [address], Progress Notes * Examination Category Sub-Category Detail Notes Category Not es General Examination Heart: RSR, normal S1S2 Lungs: clear to auscultatio n Extremities: no edema General Appearance no apparent distress , pleasant Psych: alert, oriented X 3 Other normal affect History and Physical Notes * HPI (History of Present Illness) Category Sub-Category Detail Notes Category Not es General Patient present s for follow-up. She has been under a lot of stress with her mother who is ill and requiring placement. She feels she has been doing about the same with her diet and is frustrated with her A1c results. She has been taking her thyroid medication faithfully. She denies any chest pain, palpitations and shortness of breath
--- OUTSIDE RECORDS SUMMARY | 2025-07-17 06:20 | XMS_ITS ---
Author Organization [facility] Address [address] [place], [place] [id number] Care Team Providers Care Process Control Engineer Name Role Phone JELANI SIFUENTES Primary Care Provider REASON FOR VISIT patient at [facility] Encounters Encounter Location Date Provider Diagnosis [facility] [address] [place] [address] 07/17/2025 JELANI SIFUENTES Acquired hypothyroid ism E03.9 ASSESSMENTS Encounter Date Diagnosis Assessment Notes Treatment Notes Treatment Clinical Notes Section Notes 07/17/2025 Acquired hypothyroidism (ICD-10 - E03.9) PLAN OF TREATMENT Next Appt Details Provider Name:JELANI SIFUENTES , 09/16/2025 08:45:00 AM, [address] [place], [address],
--- OUTSIDE RECORDS SUMMARY | 2025-07-18 01:22 | XMS_ITS ---
Author Organization [facility] Address [address] [place], [place] [id number] Care Team Providers Care Senior Billing Consultant Name Role Phone JELANI SIFUENTES Primary Care Provider [phone] REASON FOR VISIT lab Encounters Encounter Location Date Provider Diagnosis [address] [address] 07/18/2025 JELANI SIFUENTES Acquired hypothyroid ism E03.9 ASSESSMENTS Encounter Date Diagnosis Assessment Notes Treatment Notes Treatment Clinical Notes Section Notes 07/18/2025 Acquired hypothyroidism (ICD-10 - E03.9) PLAN OF TREATMENT Future Test Test Name Order Date [id number] 07/18/2025 Next Appt Details Provider Name:JELANI SIFUENTES , 09/16/2025 08:45:00 AM, [address] [place] [address], [phone],
--- OUTSIDE RECORDS SUMMARY | 2025-08-21 07:42 | XMS_ITS | Encounter Summary ---
Author Organization [facility] Address [address] [place] [address] Care Team Providers Care Front Load Trash Truck Driver Name Role Phone Luke Jose Primary Care Provider [phone] Encounter Details Date Type Department Care Team (Late st Contact Info) Description 05/22/2017 Orders Only [place] FIRE TECHNOLOGY INSTRUCTOR [address] [place] [phone] Karina Garcia MD Social History Tobacco Use Types Packs/Day Years Used Date Smoking Tobacco: Former Alcohol Use Standard Drinks/Week Comments Yes 0 (1 standard drink = 0.6 oz pur e alcohol) ocasionally Comments No Sex and Gender Information Value Date Recorded Sex Assigned at Not on file Legal Sex Female 3:49 PM EST Gender Identity Not on file Sexual Orientation Not on file documented as of this encounter Progress Notes * Renetta Francis - 05/25/2017 9:48 AM EDT Pap and hpv results nl atrophic pattern only noted- to provider for signature and nsg has sent nl pap letter w. 5 yr advise - documented in this encounter Plan of Treatment Upcoming Encounters Date Type Department Care Team (Late st Contact Info) Description 07/29/2026 8:45 AM EDT Office Visit [facility]. Optometry [address] [place] [phone] Zak Otto, OD [address] [place] [address] est pt exam no dm no cl aodv aoir documented as of this encounter Procedures * Due to [facility] law, this organization might not be sharing negative HIV tests. Procedure Name Priority Date/Time Associated Diagnosis Comments THINPREP TIS PAP AND HPV RNA, HR E6/E7, TMA Routine 05/22/2017 3:51 PM EDT Screening for malignant neoplasm of cervix documented in this encounter Results * Due to [facility] law, this organization might not be sharing negative HIV tests. * THINPREP TIS PAP AND HPV RNA, HR E6/E7, TMA (05/22/2017 3:51 PM EDT) Clinical information Postmenopausal [facility] Date last menstrual period NA [facility] Date of previous PAP smear 02/08/13 NEG [facility] Date of previous biopsy NONE GIVEN [facility] Specimen source (Cvx/Vag) Cervix, Endocervix [facility] Statement of Adequacy (Cvx/Vag) SATISFACTORY FOR EVALUATION [facility] Cytology, Pap Smear Negative for intraepithelial lesion or malignancy. Atrophic pattern; predominantly parabasal cells [facility] Cytology study comment (Cvx/Vag) This Pap test has been evaluated with computer assisted technology. [facility] Seamless Tube Mill Operator (Cvx/Vag) [facility] CT(ASCP) CT screening location: [address] [address] [facility] HPV MRNA E6/E7 Not Detected Not Detected [facility] Comment: This test was performed using the APTIMA HPV Assay ([employer] This assay detects E6/E7 viral messenger RNA (mRNA) from 14 high-risk HPV types (16,18,31,33,35,39,45,51,52,56,58,59,66,68). 05/22/2017 3:51 PM EDT 05/22/2017 7:59 PM EDT Narrative Resulting Agency Comment [id number] us Karina Garcia MD PATHOLOGY-INTERFACED Final Resu lt [facility] [address] [place] [address] documented in this encounter Visit Diagnoses Diagnosis Screening for malignant neoplasm of cervix Screening for malignant neoplasm of the cervix documented in this encounter Care Teams Front Load Trash Truck Driver Relationship Specialty Start Date End Date Luke Jose CARDIOLOGY & INTERNAL MED [address] [place] [id number] PCP - General Internal Medicine 10/21/14 documented as of this encounter
--- OUTSIDE RECORDS SUMMARY | 2025-08-21 07:42 | XMS_ITS | Encounter Summary ---
Author Organization [facility] Address [address] [place] [address] Care Team Providers Care Shelf Drier Operator Name Role Phone Luke Jose Primary Care Provider Unavailabl e Encounter Details Date Type Department Care Team (Late st Contact Info) Description 09/14/2021 Telephone [facility] Station [address] [place] [address] Davidson Johansen MD [address] [place] [address] Social History Tobacco Use Types Packs/Day Years Used Date Smoking Tobacco: Never Smokeless Tobacco: Never Alcohol Use Standard Drinks/Week Comments Not Currently 0 (1 standard drink = 0.6 oz pur e alcohol) rarely Comments No Sex and Gender Information Value Date Recorded Sex Assigned at Female 04/29/2019 8:40 PM EDT Legal Sex Female 1:48 PM EDT Gender Identity Female 04/29/2019 8:40 PM EDT Sexual Orientation Straight 04/29/2019 8: 40 PM EDT documented as of this encounter Plan of Treatment Upcoming Encounters Date Type Department Care Team (Latest Contact Info) Description 08/28/2025 7:15 AM EST Hospital Encounter [facility] Operating Room [address] [place] [address] Maryam Wills MD [address] [place], [place] [phone] 08/28/2025 7:15 AM EST Anesthesia Event [facility] Operating Room [address] [place] [address] Jenn Whyte, [address] [place] [address] Jace Vargas PA [address] [place] [address] 08/28/2025 7:15 AM EST - 08/28/2025 9:05 AM EST Surgery [facility] Operating Room [address] [place] [address] Maryam Wills MD [address] [place] [address] EXCISION OF LEFT VULVAR SKIN AND SUBCUTANEOUS TISSUE WITH SIMPLE REPAIR [30153 (CPT )] 09/03/2025 2:00 PM EST Follow-Up [facility] MECHANICAL AND AUTO BODY CAR CHECKER Oncology [address] [place] [address] Watch Repairer Apprentice: Marjorie Cantu ENTRY LEVEL ACCOUNT REPRESENTATIVE [address] [facility] [place] [address] 09/23/2025 1:15 PM EST Follow-Up [facility] MECHANICAL AND AUTO BODY CAR CHECKER Oncology [address] [place] [address] Watch Repairer Apprentice: Monica Wilson 10/21/2025 1:15 PM EST Office Visit [facility] MECHANICAL AND AUTO BODY CAR CHECKER Oncology [address] [place] [address] Watch Repairer Apprentice: Monica Wilson 11/25/2025 11:45 AM EST Follow-Up [facility] MECHANICAL AND AUTO BODY CAR CHECKER Oncology [address] [place] [address] Watch Repairer Apprentice: Maryam Greenberg MD [address] [place] [address] 08/27/2026 9:30 AM EST Appointment [facility] Cardiac Ultrasound [address] [place] [address] 08/27/2026 10:00 AM EST Follow-Up [facility] 4th floor Cardiology Medicine [address] [place] [address] Watch Repairer Apprentice: Meng Lagos II, MD [address] [place] [address] Scheduled Procedures Name Priority Associated Diagnoses Date/Ti me EXCISION, SKIN AND SUBCUTANEOUS TISSUE WITH SIMPLE REPAIR Differentiated vulvar intraepithelial neoplasia (dVIN) 08/28/2025 7:15 AM EST COLPOSCOPY OF VULVA Differentiated vulvar intraepithelial neoplasia (dVIN) 08/28/2025 7:15 AM EST documented as of this encounter Visit Diagnoses Not on filedocumented in this encounter Care Teams Shelf Drier Operator Relationship Specialty Start Date End Date Luke Jose [facility]OLOGY [facility] [place] [address] PCP - General Internal Medicine 04/23/19 documented as of this encounter
--- OUTSIDE RECORDS SUMMARY | 2025-08-21 07:42 | XMS_ITS | Encounter Summary ---
Author Organization [facility] Address [address] [place] [address] Care Team Providers Care Inspector Plating Name Role Phone Luke Jose Primary Care Provider [phone] Encounter Details Date Type Department Care Team (Late Contact Info) Description 05/22/2017 Orders Only [facility] PRODUCT MARKETING DIRECTOR [address] [place] [address] Medications Social History Tobacco Use Types Packs/Day Years [...] on file documented as of this encounter Plan of Treatment Upcoming Encounters Date Type Department Care Team (Late Contact Info) Description 07/29/2026 8:45 AM EDT Office Visit [facility]. Optometry [address] [place] [phone] Zak Otto, OFELIA [address] [place] [address] est pt exam no dm no cl aodv aoir documented as of this encounter Visit Diagnoses Not on filedocumented in this encounter Care Teams Inspector Plating Relationship Specialty Start Date End Date Luke Jose RS CARDIOLOGY & INTERNAL MED [address] [address] PCP - General Internal Medicine 10/21/14 documented as of this encounter
--- OUTSIDE RECORDS SUMMARY | 2025-08-21 07:42 | XMS_ITS | Encounter Summary ---
Author Organization [facility] Address [address] [place] [address] Care Team Providers Care Drum Sealer Name Role Phone Luke Jose Primary Care Provider Unavailabl e Encounter Details Date Type Department Care Team (Late st Contact Info) Description 09/06/2021 Telephone [facility] [address] [place] [address] Luke Murray MD [address] [place] [address] Social History Tobacco Use Types Packs/Day Years [...] PM EDT documented as of this encounter Miscellaneous Notes * Telephone Encounter - Jemima Lassiter - 09/06/2021 1:56 PM EST PT HAD 1 ABNORMAL REPORT FROM MONITOR . REPORT IN NUCLEAR PHYSICS PROFESSOR . documented in this encounter Plan of Treatment Upcoming Encounters Date Type Department Care Team (Latest Contact Info) Description 08/28/2025 7:15 AM EST Hospital Encounter [facility] Operating Room [address] [place] [address] Maryam Wills MD [address] [place] [address] 08/28/2025 7:15 AM EST Anesthesia Event [facility] Operating Room [address] [place] [address] Jenn Whyte, [address] [place] [address] Jace Vargas PA [address] [place] [address] 08/28/2025 7:15 AM EST - 08/28/2025 9:05 AM EST Surgery [facility] Operating Room [address] [place] [address] Maryam Wills MD [address] [place] [address] EXCISION OF LEFT VULVAR SKIN AND SUBCUTANEOUS TISSUE WITH SIMPLE REPAIR [25669 (CPT )] 09/03/2025 2:00 PM EST Follow-Up [facility] VEGETABLE GRADER Oncology [address] [place] [address] Indian Blanket Weaver: Marjorie Cantu NP 119 [facility] Gynecologic [place] [address] 09/23/2025 1:15 PM EST Follow-Up [facility] VEGETABLE GRADER Oncology [address] [place] [address] Indian Blanket Weaver: Monica Wilson 10/21/2025 1:15 PM EST Office Visit [facility] VEGETABLE GRADER Oncology [address] [place] [address] Indian Blanket Weaver: Monica Wilson 11/25/2025 11:45 AM EST Follow-Up [facility] VEGETABLE GRADER Oncology [address] [place] [address] Indian Blanket Weaver: Maryam Greenberg MD [address] [place] [address] 08/27/2026 9:30 AM EST Appointment [facility] Cardiac Ultrasound [address] [place] [address] 08/27/2026 10:00 AM EST Follow-Up [facility] 4th floor Cardiology Medicine [address] [place] [address] Indian Blanket Weaver: Meng Lagos II, MD [address] [place] [address] Scheduled Procedures Name Priority Associated Diagnoses Date/Ti me EXCISION, SKIN AND SUBCUTANEOUS TISSUE WITH SIMPLE REPAIR Differentiated vulvar intraepithelial neoplasia (dVIN) 08/28/2025 7:15 AM EST COLPOSCOPY OF VULVA Differentiated vulvar intraepithelial neoplasia (dVIN) 08/28/2025 7:15 AM EST documented as of this encounter Visit Diagnoses Not on filedocumented in this encounter Care Teams Drum Sealer Relationship Specialty Start Date End Date Luke Jose CARDIOLOGY & [place] [address] PCP - General Internal Medicine 04/23/19 documented as of this encounter
--- OUTSIDE RECORDS SUMMARY | 2025-08-21 07:42 | XMS_ITS | Encounter Summary ---
Author Organization [facility] Address [address] [place] [address] Care Team Providers Care Watch Case Polisher Name Role Phone Luke Jose Primary Care Provider Unavailabl e Encounter Details Date Type Department Care Team (Late st Contact Info) Description 09/29/2021 Orders Only [facility] Interventional Radiology [address] [place] [address] Joseph Peterson MD [address] [place] [address] Social History Tobacco Use Types Packs/Day Years [...] Description 08/28/2025 7:15 AM EST Hospital Encounter [facility] Operating Room [address] [place] [address] Maryam Wills MD [address] [place] [address] 08/28/2025 7:15 AM EST Anesthesia Event [facility] Operating Room [address] [place] [address] Jenn Whyte, DO [address] [place] [address] Jace Vargas PA [address] [place] [address] 08/28/2025 7:15 AM EST - 08/28/2025 9:05 AM EST Surgery [facility] Operating Room [address] [place] [address] Maryam Wills MD [address] [place] [address] EXCISION OF LEFT VULVAR SKIN AND SUBCUTANEOUS TISSUE WITH SIMPLE REPAIR [88732 (CPT )] 09/03/2025 2:00 PM EST Follow-Up [facility] QUARTZ MOUNTER Oncology [address] [place] [address] Field Professional: Marjorie Cantu TECHNICAL LEAD 119 [facility] [place] [address] 09/23/2025 1:15 PM EST Follow-Up [facility] QUARTZ MOUNTER Oncology [address] [place] [address] Field Professional: Monica Wilson 10/21/2025 1:15 PM EST Office Visit [facility] QUARTZ MOUNTER Oncology [address] [place] [address] Field Professional: Monica Wilson 11/25/2025 11:45 AM EST Follow-Up [facility] QUARTZ MOUNTER Oncology [address] [place] [address] Field Professional: Maryam Greenberg MD [address] [place] [address] 08/27/2026 9:30 AM EST Appointment [facility] Cardiac Ultrasound [address] [place] [address] 08/27/2026 10:00 AM EST Follow-Up [facility] 4th floor Cardiology Medicine [address] [place] [address] Field Professional: Meng Lagos II, MD [address] [place] [address] Scheduled Procedures Name Priority Associated Diagnoses Date/Ti me EXCISION, SKIN AND SUBCUTANEOUS TISSUE WITH SIMPLE REPAIR Differentiated vulvar intraepithelial neoplasia (dVIN) 08/28/2025 7:15 AM EST COLPOSCOPY OF VULVA Differentiated vulvar intraepithelial neoplasia (dVIN) 08/28/2025 7:15 AM EST documented as of this encounter Visit Diagnoses Not on filedocumented in this encounter Care Teams Watch Case Polisher Relationship Specialty Start Date End Date Luke Jose CARDIOLOGY & [place] [address] PCP - General Internal Medicine 04/23/19 documented as of this encounter
--- OUTSIDE RECORDS SUMMARY | 2025-08-21 07:43 | XMS_ITS | Patient Health Record ---
Author Organization [facility] Address [address] [place] [address] Care Team Providers Care Board Winder Name Role Phone JELANI SIFUENTES MD Primary Care Provider Unavailab Tammi Meza Unavailable [phone] Migration, Provider Unavailable Unavailable Allergies Allergen (clinical drug ingredient) Drug/Non Drug Allergy documented on EMR Reaction Allergy Type Onset Date Status sulfamethoxazole / trimethoprim Bactrim Unknown Drug Allergy Active Results Component Value Reference Range Notes Surgical pathology, Level IV , salivary glands Reviewed date:11/13/2024 09:36:04 AM Interpretation: Performing Lab: Notes/Report: Some tests performed at [facility] have not been cleared or approved for specific uses by the U.S. Food and Drug Administration (FDA). The FDA has determined that such clearance or approval is not necessary. In accordance to CLIA '88 requirements, this laboratory has verified the validity and accuracy of these tests for clinical purposes. [facility] is regulated under the Clinical Improvement Amendments Acts of 1988 (CLIA) as qualified to perform high complexity testing. Nature of Specimen See Note Text Diagnosis See Note Gross Pathology See Note Jeremy Pathology See Note Final Diagnosis See Note Clinical History See Note Comments See Note Reason For Referral No Information Medications Medication SIG (Take, Route, Frequency, Duration) Notes Start Date End Date Status Ciprofloxacin HCl 500 MG 1 tab(s) orally Q12H; Duration: 10 day(s) 01/01/2009 Active Flagyl 500 MG 1 TAB(S) ORALLY Q8H; Duration: 14 DAY(S) *Please review and pick correct strength-formulat ion from Medispan options. If intended option is not shown, discontinue and re-order from Quick Search* 01/01/2009 Active Golytely - DIRECTED ORALLY PRIOR TO COLONOSCOPY; Duration: 1 DAY *Please review and pick correct strength-formulat ion from Medispan options. If intended option is not shown, discontinue and re-order from Quick Search* 10/22/2024 Active Folic Acid *Please review and pick correct strength-formulat ion from Medispan options. If intended option is not shown, discontinue and re-order from Quick Search* Not-Taking Levoxyl *Please review and pick correct strength-formulat [...] discontinue and re-order from Quick Search* Active PEG-3350 WITH ELECTROLYTES - DIRECTED ORALLY EVERY 15 MINUTES; Duration: 1 DAYS *Please review for potential replacement for e-prescription and drug interaction check* 09/18/2019 Active Fish Oil 500 MG 2 cap(s) orally 2 times a day; Duration: 30 day(s) Active Vitamin E *Please review and pick [...] a day; Duration: 7 day(s) 12/23/2008 Active Methotrexate *Please review and pick correct strength-formulat ion from Medispan options. If intended option is not shown, discontinue and re-order from Quick Search* Active Folic Acid *Please review and pick correct strength-formulat ion from Medispan options. If intended option is not shown, discontinue and re-order from Quick Search* Active Levoxyl *Please review and pick correct strength-formulat ion from [employer] options. If intended option is not shown, discontinue and re-order from Quick Search* Active ANUSOL HC SUPPOSITOIES DIRECTED BID; Duration: 15 DAYS *Please review for potential replacement for e-prescription and drug interaction check* 03/11/2009 Active Vitamin B Complex 1 TAB QD *Please review and pick correct strength-formulat ion from [facility] options. If intended option is not shown, discontinue and re-order from Quick Search* Active Humira *Please review and pick correct strength-formulat ion from [employer] options. If intended option is not shown, discontinue and re-order from Quick Search* Active PROBIOTIC FORMULA (BACILLUS COAGULANS) - 1 CAP(S) ORALLY ONCE A DAY *Please review for potential replacement for e-prescription and drug interaction check* Active Social History Tobacco Use: Social History Observation Description Date Details (start date - stop date) Never Smoker NA - NA Smoking Question Answer Notes Are you a: never smoker Alcohol Screen Question Answer Notes Did you have a drink containing alcohol in the p ast year? No Problems Problem Type SNOMED Code ICD Code Onset Dates Problem Status W/U Status Risk Notes Problem Diarrhea (99074071) Diarrhea (787.91) Active confirmed Encounters Encounter Location Date Provider Diagnosis [facility] [address] [place] [address] 11/11/2024 Tammi Bernabe [facility] [address] [place] [phone] 02/15/2025 Provider Migration Diarrhea 787.91 [facility] [address] [place] [phone] 10/22/2024 Tammi Bernabe Assessments Encounter Date Diagnosis (ICD Code) Assessment Notes Treatment Notes Treatment Clinical Notes Section Notes 02/15/2025 Diarrhea (ICD9-CM - 787.91) Plan Of Treatment Pending Test Test Name Order Date Sed Rate 12/23/2008 folic acid 03/26/2019 CRP 03/26/2019 CBC 12/23/2008 tissue transglutaminase antibody, IGG,an d IGA 12/23/2008 stool ova and parasites 12/23/2008 stool for C-Diff 12/23/2008 Vitamin B-12 03/26/2019 Insurance Providers Payer Name Payer Address Payer Phone Subscriber Number Group Number Insured Name Patient Relationship to Insured Coverage Start Date Coverage End Date [facility] [address] [place] [address] [id number] [id number] SUE Self - patient is the insured Medical (General) History Medical History History ICD Code Rheumatoid Arthritis Hypothyroidism elevated lfts on mtx s/p liver biopsy Surgical History Surgery Date(Month/Year) trigger finger meniscus breast biopsy
--- OUTSIDE RECORDS SUMMARY | 2025-08-21 07:43 | XMS_ITS | Encounter Summary ---
Author Organization [facility] Address [address] [place] [address] Care Team Providers Care Captain Room Service Name Role Phone Luke Jose Primary Care Provider [phone] Encounter Details Date Type Department Care Team ([facility] st Contact Info) Description 04/02/2019 Orders Only [facility] [employer] [address] [address] [facility] [address] [place] [address] Gurjit Martines NP [address] [place] [address] Social History Tobacco Use Types Packs/Day Years Used Date Smoking Tobacco: Never Smokeless Tobacco: Never Alcohol Use Standard Drinks/Week Comments Yes 0 (1 standard drink = 0.6 oz pur e alcohol) ocasionally Comments No Sex and Gender Information Value Date Recorded Sex Assigned at Not on file Legal Sex Female 3:49 PM EST Gender Identity Not on file Sexual Orientation Not on file documented as of this encounter Progress Notes * Gurjit Martines NP - 04/24/2019 7:56 PM EDT Pt has appointment scheduled with Office Manager Executive Assistant Onc. * Marissa Otto LPN - 04/22/2019 2:38 PM EDT Any further action for nursing to follow up on with regards to this patient? * Gurjit Martines NP - 04/22/2019 7:40 AM EDT Cancel calling the lab. I am ordering Office Manager Executive Assistant-Onc consult as Differentiated PAMELA has a higher risk to develop into non-HPV vulvar cancer per Up to date. * Gurjit Martines NP - 04/22/2019 6:47 AM EDT Can you help me figure out who the Pathologist was who evaluated this biopsy. We usually identify PAMELA as PAMELA 1,2 or 3 as that guides the treatment course. Neither I or Dr. Romano understand where 'Differentiated PAMELA falls. So, I need to contact the lab or pathologist to get a label of PAMELA 1,2 or 3. * Gurjit Martines NP - 04/19/2019 4:56 PM EDT Luis Foreman, I wanted to let you know that I received the biopsy results back. The result is abnormal. I need more definitive information from pathology before I can formulate a plan for you. It's is abnormal, but they didn't specify how abnormal. Monday I am contacting pathology to talk with them. I will let you know as soon as I have an answer so we can make a plan. I wanted to give you an update, even if I don't have an exact diagnosis yet. But I will. Gurjit * Brooke Swan RN - 04/19/2019 9:50 AM EDT Routed to Tuan SOTO * Sparkle Gardner RN - 04/17/2019 9:47 AM EDT Pt is aware of normal pap result and awaiting MD recommendation for biopsy result. * Gurjit Martines NP - 04/16/2019 4:54 PM EDT Have message with results out to Dr. Romano. * Brooke Swan RN - 04/16/2019 10:45 AM EDT Results to BUSINESS MGR to review documented in this encounter Plan of Treatment Upcoming Encounters Date Type Department Care Team (Late st Contact Info) Description 07/29/2026 8:45 AM EDT Office Visit [facility]. Optometry [address] [place] [address] Zak Otto, OD [address] [place] [address] est pt exam no dm no cl aodv aoir documented as of this encounter Procedures * Due to [place] [employer] law, this organization might not be sharing negative HIV tests. Procedure Name Priority Date/Time Associated Diagnosis Comments THINPREP TIS PAP AND HPV RNA, HR E6/E7, TMA Routine 04/02/2019 12:28 PM EDT Screening for malignant neoplasm of cervix TISSUE PATHOLOGY Routine 04/02/2019 9:00 AM EDT documented in this encounter Results * Due to [place] [employer] law, this organization might not be sharing negative HIV tests. * THINPREP TIS PAP AND HPV RNA, HR E6/E7, TMA (04/02/2019 12:28 PM EDT) Clinical information None given [facility] Date last menstrual period POSTMENOPAUSAL [facility] Date of previous PAP smear 05/22/2017 [facility] Date of previous biopsy NA [facility] Specimen source (Cvx/Vag) Cervix [facility] Statement of Adequacy (Cvx/Vag) SATISFACTORY FOR EVALUATION [facility] Cytology, Pap Smear Negative for intraepithelial lesion or malignancy. Atrophic pattern; predominantly parabasal cells [facility] Cytology study comment (Cvx/Vag) This Pap test has been evaluated with computer assisted technology. [facility] Surgical Assistant Certified (Cvx/Vag) YP, CT(ASCP) CT screening location: [place] [address] [facility] COMMENT SEE NOTE [facility] Comment: EXPLANATORY NOTE: The Pap is a screening test for cervical cancer. It is not a diagnostic test and is subject to false negative and false positive results. It is most reliable when a satisfactory sample, regularly obtained, is submitted with relevant clinical findings and history, and when the Pap result is evaluated along with historic and current clinical information. HPV MRNA E6/E7 Not Detected Not Detected [facility] Comment: This test was performed using the APTIMA HPV Assay ([employer] This assay detects E6/E7 viral messenger RNA (mRNA) from 14 high-risk HPV types (16,18,31,33,35,39,45,51,52,56,58,59,66,68). The analytical performance characteristics of this assay have been determined by [facility]. The modifications have not been cleared or approved by the FDA. This assay has been validated pursuant to the CLIA regulations and is used for clinical purposes. Cervical 04/02/2019 12:2 8 PM EDT 04/02/2019 11:48 PM EDT Narrative Resulting Agency Comment [id number] Gurjit Martines NP PATHOLOGY-INTERFACED Final Resu lt [facility] [address] [place] [address] * TISSUE PATHOLOGY (04/02/2019 9:00 AM EDT) COLLECTION DATE 04/02/2019 9:00 AM [facility] SPECIMEN SOURCE . A . LEFT LOWER LABIA,PUNCH BX [facility] DIAGNOSIS . A . SEE NOTE [facility] Comment: Differentiated Vulvar Intraepithelial Neoplasia, see comment. Comment: There is no evidence of invasion in this biopsy, however differentiated PAMELA extends to the deep and peripheral margins. Immunohistochemical stains for p53 and ki67 exhibit a staining pattern consistent with the diagnosis. Pathologist Guido Sarmiento M.D., Board Certified in Anatomic and Clinical Pathology (electronic signature) Consulting Pathologist [facility] [address] [place] [id number] [facility] GROSS DESCRIPTION . A . SEE NOTE [facility] Comment: The container is labeled with patient's name Kellen Spring and source external vaginal lesion . Specimen is received in formalin and consists of two light prado slightly crusted punch biopsies measuring 0.4 x 0.3 cm and excised to a depth of 0.2 cm and 0.5 x 0.4 and excised to a depth of 0.2 cm. The surgical resection margins are inked black. Specimens are bisected and submitted in toto in cassettes A1 and A2 respectively. TANI/LINDA 04/03/2019 Gross exam(s) performed at: [facility] [address] [phone] [employer]: NANDO FAGAN MD 04/02/2019 9:00 AM EDT 04/02/2019 10:50 PM EDT us Gurjit Martines NP PATHOLOGY-INTERFACED Final Resu lt Performing Organization Address City/State/[facility] Co de Phone Number [facility] [address] [place] [address] documented in this encounter Visit Diagnoses Diagnosis Screening for malignant neoplasm of cervix Screening for malignant neoplasm of the cervix documented in this encounter Care Teams Captain Room Service Relationship Specialty Start Date End Date Luke Jose [facility] [address] [place] [address] PCP - General Internal Medicine 10/21/14 documented as of this encounter
--- OUTSIDE RECORDS SUMMARY | 2025-08-21 07:43 | XMS_ITS | Encounter Summary ---
Author Organization [facility] Address [address] [place] [address] Care Team Providers Care Surgical Brace Maker Name Role Phone Luke Jose Primary Care Provider [phone] Encounter Details Date Type Department Care Team (Late st Contact Info) Description 03/15/2019 Orders Only [facility] [employer] [address] [place] [address] Gurjit Martines, BRITTANY [address] [place] [address] Medications Social History Tobacco Use Types Packs/Day [...] as of this encounter Progress Notes * Brooke Baires LVN LPN - 03/19/2019 2:29 PM EDT Pt aware of results and treatment. See 03-19-19 TM * Gurjit Martines NP - 03/18/2019 12:56 PM EDT Can you behavioral health counselor Kellen and let her know that the vaginal wound is positive for GBS. I am going to send in a script for Cleocin vaginal gel. She is to DC the Neosporin. If not covered by insurance, please call us. We can then send in a script for Cephalexin 500mg 4 times a day x 10 days. Nursing may send script and I will cosign. documented in this encounter Plan of Treatment Upcoming Encounters Date Type Department Care Team (Late st Contact Info) Description 07/29/2026 8:45 AM EDT Office Visit [facility]. Optometry [address] [place] [address] Zak Otto, OD [address] [place] [address] est pt exam no dm no cl aodv aoir documented as of this encounter Procedures * Due to [place] [employer] law, this organization might not be sharing negative HIV tests. Procedure Name Priority Date/Time Associated Diagnosis Comments CULTURE, HERPES SIMPLEXVIRUS WITH TYPING Routine 03/15/2019 12:24 PM EDT Lesion of vulva CULTURE,AEROBIC WOUND,SUPERFICIAL Routine 03/15/2019 12:24 PM EDT Lesion of vulva documented in this encounter Results * Due to [place] [employer] law, this organization might not be sharing negative HIV tests. * (ABNORMAL) CULTURE, WOUND, SUPERFICIAL (03/15/2019 12:24 PM EDT) Bacteria culture SEE NOTE(A) [facility] Comment: CULTURE, AEROBIC BACTERIA MICRO NUMBER: [id number] TEST STATUS: FINAL SPECIMEN SOURCE: EXTERNAL VAGINAL LESION SPECIMEN QUALITY: ADEQUATE RESULT: Heavy growth of Group B Streptococcus isolated Beta-hemolytic Streptococci are predictably susceptible to penicillin and other beta-lactams. Susceptibility testing not routinely performed. COMMENT: Skin chaparro also present. 03/15/2019 12:2 4 PM EDT 03/15/2019 4:36 PM EDT Narrative Resulting Agency Comment [id number] Gurjit Martines CLEARANCE REPRESENTATIVE LABORATORY Final Result Performing Organization Address City/[facility]/ZIP Co de Phone Number [facility] [address] [place] [address] * CULTURE, HERPES SIMPLEXVIRUS WITH TYPING (03/15/2019 12:24 PM EDT) Herpes simplex virus identified SEE NOTE [facility] Comment: HERPES SIMPLEX VIRUS CULTURE W/RFL TO TYPING MICRO NUMBER: [id number] TEST STATUS: FINAL SPECIMEN SOURCE: EXTERNAL VAGINAL LESION SPECIMEN QUALITY: ADEQUATE HSV CULTURE: Not isolated 03/15/2019 12:2 4 PM EDT 03/15/2019 4:36 PM EDT Narrative Resulting Agency Comment [id number] Gurjit Martines CLEAR[facility] REPRESENTAT[facility] LABORAT[facility] Final Result Performing Organization Address [facility] Co de Phone Number [facility] [address] [place] [address] documented in this encounter Visit Diagnoses Diagnosis Lesion of vulva Other specified noninflammatory disorder of vulva and perineum documented in this encounter Care Teams Surgical Brace Maker Relationship Specialty Start Date End Date Luke Jose [facility] [address] [place] [address] PCP - General Internal Medicine 10/21/14 documented as of this encounter
--- OUTSIDE RECORDS SUMMARY | 2025-08-21 07:43 | XMS_ITS | Encounter Summary ---
Author Organization [facility] Address [address] [address] Phone Care Team Providers Care Customer Service Manager Name Role Phone Luke Jose MD Primary Care Provider [phone] Encounter Details Date Type Department Care Team (Late st Contact Info) Description 02/11/2025 Ancillary Orders [facility] Main [place] [address] [place] [address] Jessica Deleon MD [address] [place] [address] [email or web address] Rheumatoid arthritis, involving unspecified site, unspecified whether rheumatoid factor present (Primary Dx) Social History Tobacco Use Types Packs/Day Years Used Date Smoking Tobacco: Former Smokeless Tobacco: Never Alcohol Use Standard Drinks/Week Comments Not Asked 0 (1 standard drink = 0.6 oz pur e alcohol) Child or Family Care Answer Date Record ed Do you have problems with on e of the following making it difficult for you to work, study, or receive health care? No 02/10/2025 Education Answer Date Recorded Are you interested in help w ith more adult education (for example, completing high school, GED, job training, learning the [place] language, technical skills, or developing parenting skills)? No 02/10/2025 Are you concerned about learning? Not on file 02/10/2025 No 02/10/2025 Yes 02/10/2025 Food Answer Date Recorded Within the past 6 months we worried whether our food would run out before we got money to buy more. Never True 02/10/2025 Within the past 6 months the food we bought just didn't last and we didn't have enough money to get more. Never True Residential Stability Answer Date Recor ded What is your housing situation today? I have valeria sing 02/10/2025 How many times have you move d in the past 12 months? Zero (I did not move) 02/10/2025 Paying for Meds Answer Date Recorded Do you have trouble paying for medicines? No 02/10/2025 Paying Utility Bills Answer Date Record ed Do you have trouble paying your heating or elect ricity bill? No 02/10/2025 Transportation Answer Date Recorded Has the lack of transportati on kept you from medical appointments or from getting medications? No 02/10/2025 Unemployment Answer Date Recorded Are you currently unemployed or working on a part-time or temporary basis, and looking for work? No 08/24/2022 Digital Access Answer Date Recorded No 02/10/2025 Yes 02/10/2025 Do you have reliable internet access at home? Ye s 02/10/2025 Do you have a device (e.g., phone, tablet, computer) with a working camera? Yes 02/10/2025 Comments Unknown Sex and Gender Information Value Date Recorded Sex Assigned at Not on file Legal Sex Female 3:55 PM EDT Gender Identity Not on file Sexual Orientation Not on file documented as of this encounter Plan of Treatment Upcoming Encounters Date Type Department Care Team (Late st Contact Info) Description 12/23/2025 11:40 AM EDT Office Visit [facility] [address] [place] [address] [place] [address] Magda Gee MD, MPH [address] [place] [address] [email or web address] documented as of this encounter Results * XR HAND 3 OR MORE VIEWS (LEFT) (02/11/2025 12:47 PM EDT) Anatomical Region Laterality Modality Hand Left Computed Radiogr aphy 02/11/2025 3:37 PM EDT Impressions 02/11/2025 9:04 PM EDT Overall similar findings of the underlying inflammatory arthropathy in the bilateral hands, however slightly progressed at the right third metacarpal head. ATTESTATION: Justus Weaver, as teaching physician have reviewed the images, if any, for this patient's exam, and if necessary, have edited the report originally created by Stan Gregg. Narrative 02/11/2025 9:04 PM EDT XR HAND 3 OR MORE VIEWS (RIGHT), XR HAND 3 OR MORE VIEWS (LEFT) Referring clinician's provided indication for this examination in Epic: Arthritis: Rheumatoid; please compare to prior COMPARISON: XR HAND 3 OR MORE VIEWS (RIGHT) ; XR HAND 3 OR MORE VIEWS (LEFT) FINDINGS: Left hand: Again seen erosive changes throughout the carpus, ulnar styloid process, distal radius and at the metacarpophalangeal joints. Similar osseous erosions at the proximal interphalangeal joints, specifically second third and fifth PIP joints..Severe joint space narrowing at the radiocarpal and ulnocarpal joints as well as the STT and carpometacarpal joints. Similar moderate to severe cartilage space narrowing of the midcarpal and metacarpophalangeal joints. No acute fracture or dislocation. Mild soft tissue swelling about the wrist and index and long finger PIP joints. Right hand: Again seen erosive changes throughout the carpus, ulnar styloid process, distal radius and at the metacarpophalangeal joints, overall similar however slightly progressed at the third metacarpal head. Similar osseous erosions at the second and third proximal interphalangeal joints. Similar severe joint space narrowing at the radiocarpal and ulnocarpal joints, STT, carpometacarpal and third metacarpophalangeal joints. No acute fracture or dislocation. No significant soft tissue swelling. . Procedure Note Justus Abdi MD - 02/11/2025 XR HAND 3 OR MORE VIEWS (RIGHT), XR HAND 3 OR MORE VIEWS (LEFT) Referring clinician's provided indication for this examination in Epic:Arthritis: Rheumatoid; please compare to prior COMPARISON: XR HAND 3 OR MORE VIEWS (RIGHT) 2023-; XR HAND 3 OR MOREVIEWS (LEFT) FINDINGS: Left hand: Again seen erosive changes throughout the carpus, ulnar styloidprocess, distal radius and at the metacarpophalangeal joints. Similarosseous erosions at the proximal interphalangeal joints, specificallysecond third and fifth PIP joints..Severe joint space narrowing at theradiocarpal and ulnocarpal joints as well as the STT and carpometacarpaljoints. Similar moderate to severe cartilage space narrowing of themidcarpal and metacarpophalangeal joints. No acute fracture ordislocation. Mild soft tissue swelling about the wrist and index and longfinger PIP joints. Right hand: Again seen erosive changes throughout the carpus, ulnarstyloid process, distal radius and at the metacarpophalangeal joints,overall similar however slightly progressed at the third metacarpal head.Similar osseous erosions at the second and third proximal interphalangealjoints. Similar severe joint space narrowing at the radiocarpal and ulnocarpaljoints, STT, carpometacarpal and third metacarpophalangeal joints. Noacute fracture or dislocation. No significant soft tissue swelling. . IMPRESSION: Overall similar findings of the underlying inflammatory arthropathy in thebilateral hands, however slightly progressed at the right third metacarpalhead. ATTESTATION: Justus Weaver, as teaching physician have reviewed theimages, if any, for this patient's exam, and if necessary, have edited thereport originally created by Stan Gregg. Jessica Deleon MD IMG XR UPPER EXTR EMITY Final Result documented in this encounter Visit Diagnoses Diagnosis Rheumatoid arthritis, involving unspecified site, unspecified whether rheumatoid factor present Rheumatoid arthritis, involving unspecified site, unspecified whether rheumatoid factor present- Primary documented in this encounter Care Teams Customer Service Manager Relationship Specialty Start Date End Date Luke Jose MD [address] [place] [address] (work) PCP - General Internal Medicine 12/30/15 documented as of this encounter Additional Source Comments The information contained in this document represents components of the legal health record. It is not the complete legal health record.[facility]
--- OUTSIDE RECORDS SUMMARY | 2025-08-21 07:43 | XMS_ITS | Encounter Summary ---
Author Organization [facility] Address [address] [address] Phone Care Team Providers Care Prescription Clerk Name Role Phone Luke Jose MD Primary Care Provider [phone] Encounter Details Date Type Department Care Team (Late st Contact Info) Description 01/30/2024 Ancillary Orders [facility] Ar[facility] Main [place] [address] [place] [address] Jessica Deleon MD [address] [place] [address] [email or web address] Rheumatoid arthritis involving multiple sites with positive rheumatoid factor (Primary Dx) Social History Tobacco Use Types [...] to work, study, or receive health care? I choose not to answer 01/30/2024 Education Answer Date Recorded Are you interested in help w ith more adult education (for example, completing high school, GED, job training, learning the [place] language, technical skills, or developing parenting skills)? I choose not to answer 01/30/2024 Are you concerned about learning? Not on file 01/30/2024 No 01/30/2024 Yes 01/30/2024 Food Answer Date Recorded Within the past 6 months we worried whether our food would run out before we got money to buy more. I choose not to answer 01/30/2024 Within the past 6 months the food we bought just didn't last and we didn't have enough money to get more. I choose not to answer 01/30/2024 Residential Stability Answer Date Recor ded What is your housing situation today? I choose n ot to answer 01/30/2024 How many times have you move d in the past 12 months? Zero (I did not move) 01/30/2024 Paying for Meds Answer Date Recorded Do you have trouble paying for medicines? I chasity se not to answer 01/30/2024 Paying Utility Bills Answer Date Record ed Do you have trouble paying y our heating or electricity bill? I choose not to answer 01/30/2024 Transportation Answer Date Recorded Has the lack of transportati on kept you from medical appointments or from getting medications? No 01/30/2024 Unemployment Answer Date Recorded Are you currently unemployed or working on a part-time or temporary basis, and looking for work? No 08/24/2022 Digital Access Answer Date Recorded No 01/30/2024 No 01/30/2024 Do you have reliable internet access at home? I choose not to answer 01/30/2024 Do you have a device (e.g., phone, tablet, computer) with a working camera? I choose not to answer 01/30/2024 Comments Unknown Sex and Gender Information Value Date Recorded Sex Assigned at Not on file Legal Sex Female 3:55 PM EDT Gender Identity Not on file Sexual Orientation Not on file documented as of this encounter Plan of Treatment Upcoming Encounters Date Type Department Care Team (Late st Contact Info) Description 12/23/2025 11:40 AM EDT Office Visit [facility] Main [place] [address] [place] [address] Magda Gee MD, MPH [address] [place] [address] [email or web address] documented as of this encounter Results * XR HAND 3 OR MORE VIEWS (LEFT) (01/30/2024 12:06 PM EDT) Anatomical Region Laterality Modality Hand Left Computed Radiogr aphy 01/30/2024 1:48 PM EDT Impressions 01/30/2024 1:52 PM EDT Findings consistent with inflammatory arthropathy of both hands, progressed when compared to prior. Narrative 01/30/2024 1:52 PM EDT XR HAND 3 OR MORE VIEWS (RIGHT), XR HAND 3 OR MORE VIEWS (LEFT) Referring clinician's provided indication for this examination in Epic: Arthritis: Rheumatoid; please compare to prior xrays 2021 COMPARISON: Bilateral hand radiographs 12/09/2021. FINDINGS: Right hand: Erosive changes throughout the carpus, ulnar styloid process, distal radius and at the metacarpophalangeal joints. Severe joint space narrowing at the radiocarpal and ulnocarpal joints as well as the STT, carpometacarpal and third metacarpophalangeal joints. Moderate to severe joint space narrowing of the remaining midcarpal and metacarpophalangeal joints. No acute fracture or dislocation. Mild soft tissue swelling about the wrist. New bony erosions at the second and third proximal interphalangeal joints. Left hand: Erosive changes throughout the carpus, ulnar styloid process, distal radius and at the metacarpophalangeal joints. Severe joint space narrowing at the radiocarpal and ulnocarpal joints as well as the STT and carpometacarpal joints. Moderate to severe joint space narrowing of the midcarpal and metacarpophalangeal joints. No acute fracture or dislocation. Mild soft tissue swelling about the wrist. New bony erosions at the proximal interphalangeal joints, specifically second third and fifth PIP joints. Procedure Note Grace Bell MD - 01/30/2024 XR HAND 3 OR MORE VIEWS (RIGHT), XR HAND 3 OR MORE VIEWS (LEFT) Referring clinician's provided indication for this examination in [facility]:Arthritis: Rheumatoid; please compare to prior xrays 2021 COMPARISON: Bilateral hand radiographs 12/09/2021. FINDINGS: Right hand: Erosive changes throughout the carpus, ulnar styloid process,distal radius and at the metacarpophalangeal joints. Severe joint spacenarrowing at the radiocarpal and ulnocarpal joints as well as the STT,carpometacarpal and third metacarpophalangeal joints. Moderate to severejoint space narrowing of the remaining midcarpal and metacarpophalangealjoints. No acute fracture or dislocation. Mild soft tissue swelling aboutthe wrist. New bony erosions at the second and third proximalinterphalangeal joints. Left hand: Erosive changes throughout the carpus, ulnar styloid process,distal radius and at the metacarpophalangeal joints. Severe joint spacenarrowing at the radiocarpal and ulnocarpal joints as well as the STT andcarpometacarpal joints. Moderate to severe joint space narrowing of themidcarpal and metacarpophalangeal joints. No acute fracture ordislocation. Mild soft tissue swelling about the wrist. New bony erosionsat the proximal interphalangeal joints, specifically second third andfifth PIP joints. IMPRESSION: Findings consistent with inflammatory arthropathy of both hands,progressed when compared to prior. Jessica Deleon MD IMG XR UPPER EXTR EMITY Final Result documented in this encounter Visit Diagnoses Diagnosis Rheumatoid arthritis involving multiple sites with positive rheumatoid factor Rheumatoid arthritis involving multiple sites with positive rheumatoid factor- Primary documented in this encounter Care Teams Prescription Clerk Relationship Specialty Start Date End Date Luke Jose MD [address] [place] [address] PCP - General Internal Medicine 12/30/15 documented as of this encounter Additional Source Comments The information contained in this document represents components of the legal health record. It is not the complete legal health record.[facility]
--- OUTSIDE RECORDS SUMMARY | 2025-08-21 07:43 | XMS_ITS | Encounter Summary ---
Author Organization [facility] Address [address] [place] [address] Phone Care Team Providers Care Industrial Recruiter Name Role Phone Luke Jose MD Primary Care Provider [phone] Encounter Details Date Type Department Care Team (Late st Contact Info) Description 10/21/2016 Procedure Pass [facility] Periop 6th floor [address] [place] [address] Social History Tobacco Use Types Packs/Day Years Used Date Smoking Tobacco: Former Alcohol Use Standard Drinks/Week Comments Not Asked 0 (1 standard drink = 0.6 oz pur e alcohol) Comments Unknown Sex and Gender Information Value Date Recorded Sex Assigned at Not on file Legal Sex Female 3:55 PM EDT Gender Identity Not on file Sexual Orientation Not on file documented as of this encounter Plan of Treatment Upcoming Encounters Date Type Department Care Team (Late st Contact Info) Description 12/23/2025 11:40 AM EDT Office Visit [facility] Arthritis Center Main [place] [address] [place] [address] Magda Gee MD, MPH [address] [place] [address] [email or web address] documented as of this encounter Visit Diagnoses Not on filedocumented in this encounter Care Teams Industrial Recruiter Relationship Specialty Start Date End Date Crandall, Luke Joseph, MD [address] [place] [address] PCP - General Internal Medicine 12/30/15 documented as of this encounter Additional Source Comments The information contained in this document represents components of the legal health record. It is not the complete legal health record.[facility]
--- OUTSIDE RECORDS SUMMARY | 2025-08-21 07:43 | XMS_ITS | Patient Health Record ---
Author Organization [facility] Address [address], [place] [id number] Care Team Providers Care Educational Institution Curator Name Role Phone JELANI SIFUENTES Primary Care [...] ctive Ragweed Unknown Allergy Active REASON FOR REFERRAL No Information MEDICATIONS Medication SIG (Take, Route, Frequency, Duration) Notes Start Date End Date Status Orencia 125 MG/ML inject 1 milliliter by subcutaneous route every week Subcutaneous Active OneTouch Delica Plus [id number] - TEST 3 TIMES DAILY AND DIRECTED for 33 Active Aspirin 81 MG chew 1 tablet by ora l route every day Oral 12/19/2022 Active Levothyroxine Sodium 150 MCG 1 tablet in the morning on an empty stomach Orally Once a day for 30 day(s) 06/18/2025 Active ONE TOUCH DELICA PLUS 30G 30 gauge TEST 3 TIMES DAILY AND DIRECTED MISCELL 01/26/2023 Active metFORMIN HCl 500 MG 1 tablet with a nury l Orally Once a day for 90 day(s) 06/18/2025 Active Urea 40 % 1 application as nee ded Externally Once a day for 30 day(s) 11/11/2024 Active Estradiol 0.1 MG/GM as directed Vaginal Active Triamcinolone Acetonide 0.1 % apply by TOPICAL route every day a thin film to the affected skin areas External 08/15/2022 Active Nystatin 122081 UNIT/GM 1 application Ex ternally Twice a day for 30 day(s) 01/31/2025 Active OneTouch Verio - USE 1 STRIP THREE TI MES A DAY DIRECTED BY for 33 Active IMMUNIZATIONS Vaccine Route Administration Date Status Comme nts Zoster recombinant Unknown 12/17/2020 Administered Zoster recombinant Unknown 03/19/2021 Administered TDAP Unknown 06/24/2022 Administered Td (Tetanus Diphtheria) IM Intramuscular 07/30/2012 Admini stered Prevnar Unknown 01/07/2022 Administered Pneumococcal, PPV 23 Unknown 07/30/2012 Administered Pneumococcal Prevnar 13 IM Intramuscular 07/30/2012 Admini stered Pfizer COVID-19,mRNA, LNP-S, PF, 30mcg/0.3mL dose Unknown 01/09/2021 Administered Pfizer COVID-19,mRNA, LNP-S, PF, 30mcg/0.3mL dose Unknown 01/30/2021 Administered Pfizer COVID-19,mRNA, LNP-S, PF, 30mcg/0.3mL dose Unknown 06/12/2021 Administered Influenza, Fluarix Quad Unknown 07/04/2012 Administered Covid Unknown 07/13/2022 Administered SOCIAL HISTORY Tobacco Use: Social History Observation Description Date Details (start date - stop date) Never Smoker NA - NA Sex Assigned At : Social History Observation Description Sex Assigned At Unknown Smoking Question Answer Notes Are you a: never smoker PROBLEMS Problem Type ICD Code Onset Dates Problem Status W/U Status Risk SNOMED Code Notes Problem Acquired hypothyroidism (E03.9) Active confirmed 109050392 Problem Type 2 diabetes mellitus without complication, without long-term current use of insulin (E11.9) Active confirmed 919100706 Problem Rheumatoid arthritis, unspecified (M06.9) 0 Active confirmed Rheumatoid arthritis (04478124) VITAL SIGNS Blood pressure diastolic 72 mm Hg 06/18/2025 Height 67.5 in 06/18/2025 Blood pressure systolic 124 mm Hg 06/18/2025 Weight 180.0 lbs 06/18/2025 BMI 27.77 kg/m2 06/18/2025 Encounters Encounter Location Date Provider Diagnosis [facility] [address] [place] [id number] 10/17/2024 [facility] [address] [place] [address] 11/07/2024 [facility] [address] [place] [address] 11/08/2024 [facility] [address] [place] [address] 11/08/2024 [facility] [address] [address] 12/17/2024 [facility] Type 2 diabetes mellitus without complication, without long-term current use of insulin E11.9 ; Acquired hypothyroidism E03.9 ; History of colon polyps Z86.0100 and Rheumatoid arthritis, unspecified M06.[address] [address] 12/18/[address] [address] 12/20/2024 [facility] Type 2 diabetes mellitus without complication, without long-term current use of insulin E11.9 and Acquired hypothyroidism E03.[address] [address] 01/31/[address] [address] 03/19/2025 [facility] Encounter for genera l adult medical examination with abnormal findings Z00.01 ; Type 2 diabetes mellitus without complication, without long-term current use of insulin E11.9 ; Acquired hypothyroidism E03.9 ; Rheumatoid arthritis, unspecified M06.9 and History of atrial fibrillation Z86.[address] [address] 03/19/[address] [address] 03/21/2025 [facility] Type 2 diabetes mellitus without complication, without long-term current use of insulin E11.9 and Acquired hypothyroidism E03.[address] [address] 04/02/[address] [address] 04/04/2025 [place] [address] [place] [address] 05/28/[address] [address] 06/11/[address] [address] 06/12/[address] [address] 06/12/[address] [address] 06/18/2025 JEL[facility] Type 2 diabetes mellitus without complication, without long-term current use of insulin E11.9 ; Acquired hypothyroidism E03.9 ; Rheumatoid arthritis, unspecified M06.9 and Anxiety F41.[address] [address] 07/17/2025 [facility] Acquired hypothyroid ism E03.[address] [address] 07/18/2025 [facility] Acquired hypothyroid ism E03.9 ASSESSMENTS Encounter Date Diagnosis Assessment Notes Treatment Notes Treatment Clinical Notes Section Notes 12/17/2024 Acquired hypothyroidism (ICD-10 - E03.9) 1. Diabetes Will recheck A1c on presnet nutrition efforts 2. Hypothyroidism: Update TSh on presnet supplementation 3. H/O Colon polyps Just had [place] - next in 5 years 4 Rheumatoid arthritis Stable on Otezla Follow 12/17/2024 Type 2 diabetes mellitus without complication, without long-term current use of insulin (ICD-10 - E11.9) 1. Diabetes Will recheck A1c on presnet nutrition efforts 2. Hypothyroidism: Update TSh on presnet supplementation 3. H/O Colon polyps Just had [place] - next in 5 years 4 Rheumatoid arthritis Stable on Otezla Follow 03/19/2025 Encounter for general adult medical examination with abnormal findings (ICD-10 - Z00.01) 1. Routine healthcare maintenance: Patient had colonoscopy at [facility] earlier this year. We will send for report. She is up-to-date with her mammogram and [employer]. We will eventually update fasting blood work 2. Type 2 diabetes mellitus: She wishes to update her A1c today to see if it has come down from 7.8. We discussed placing a CGM and also other medication possibilities 3. Hypothyroidism: Will update TSH on current level of supplementation. It was mildly elevated on last draw 4. Rheumatoid arthritis: Generally stable on Orencia. Will follow with rheumatology 5. History of paroxysmal A-fib: No obvious recurrence. EKG is stable today 03/19/2025 Type 2 diabetes mellitus without complication, without long-term current use of insulin (ICD-10 - E11.9) 1. Routine healthcare maintenance: Patient had colonoscopy at [facility] earlier this year. We will send for report. She is up-to-date with her mammogram and [employer]. We will eventually update fasting blood work 2. Type 2 diabetes mellitus: She wishes to update her A1c today to see if it has come down from 7.8. We discussed placing a CGM and also other medication possibilities 3. Hypothyroidism: Will update TSH on current level of supplementation. It was mildly elevated on last draw 4. Rheumatoid arthritis: Generally stable on Orencia. Will follow with rheumatology 5. History of paroxysmal A-fib: No obvious recurrence. EKG is stable today 12/20/2024 Acquired hypothyroidism (ICD-10 - E03.9) 12/20/2024 Type 2 diabetes mellitus without complication, without long-term current use of insulin (ICD-10 - E11.9) 03/21/2025 Acquired hypothyroidism (ICD-10 - E03.9) 03/21/2025 Type 2 diabetes mellitus without complication, without long-term current use of insulin (ICD-10 - E11.9) 06/18/2025 Acquired hypothyroidism (ICD-10 - E03.9) 1. [...] number NCS. She is getting a new powder line repairer but has good supply of all her medications at present 4. Anxiety: Coping well with situational stress at present. Support given today 06/18/2025 Type 2 diabetes mellitus without complication, [...] number NCS. She is getting a new powder line repairer but has good supply of all her medications at present 4. Anxiety: Coping well with situational stress at present. Support given today 07/17/2025 Acquired hypothyroidism (ICD-10 - E03.9) 07/18/2025 Acquired hypothyroidism (ICD-10 - E03.9) 12/17/2024 History of colon polyps (ICD-10 - Z86.0100) 1. Diabetes Will recheck A1c on presnet nutrition efforts 2. Hypothyroidism: Update TSh on presnet supplementation 3. H/O Colon polyps Just had [place] - next in 5 years 4 Rheumatoid arthritis Stable on Otezla Follow 03/19/2025 Acquired hypothyroidism (ICD-10 - E03.9) 1. Routine healthcare maintenance: Patient had colonoscopy at [facility] earlier this year. We will send for report. She is up-to-date with her mammogram and [employer]. We will eventually update fasting blood work 2. Type 2 diabetes mellitus: She wishes to update her A1c today to see if it has come down from 7.8. We discussed placing a CGM and also other medication possibilities 3. Hypothyroidism: Will update TSH on current level of supplementation. It was mildly elevated on last draw 4. Rheumatoid arthritis: Generally stable on Orencia. Will follow with rheumatology 5. History of paroxysmal A-fib: No obvious recurrence. EKG is stable today 06/18/2025 Rheumatoid arthritis, unspecified (ICD-10 - [...] number NCS. She is getting a new powder line repairer but has good supply of all her medications at present 4. Anxiety: Coping well with situational stress at present. Support given today 12/17/2024 Rheumatoid arthritis, unspecified (ICD-10 - M06.9) 1. Diabetes Will recheck A1c on presnet nutrition efforts 2. Hypothyroidism: Update TSh on presnet supplementation 3. H/O Colon polyps Just had [place] - next in 5 years 4 Rheumatoid arthritis Stable on Otezla Follow 03/19/2025 Rheumatoid arthritis, unspecified (ICD-10 - M06.9) 1. Routine healthcare maintenance: Patient had colonoscopy at [facility] earlier this year. We will send for report. She is up-to-date with her mammogram and [employer]. We will eventually update fasting blood work 2. Type 2 diabetes mellitus: She wishes to update her A1c today to see if it has come down from 7.8. We discussed placing a CGM and also other medication possibilities 3. Hypothyroidism: Will update TSH on current level of supplementation. It was mildly elevated on last draw 4. Rheumatoid arthritis: Generally stable on Orencia. Will follow with rheumatology 5. History of paroxysmal A-fib: No obvious recurrence. EKG is stable today 06/18/2025 Anxiety (ICD-10 - F41.9) 1. [...] number NCS. She is getting a new powder line repairer but has good supply of all her medications at present 4. Anxiety: Coping well with situational stress at present. Support given today 03/19/2025 History of atrial fibrillation (ICD-10 - Z86.79) 1. Routine healthcare maintenance: Patient had colonoscopy at [facility] earlier this year. We will send for report. She is up-to-date with her mammogram and [employer]. We will eventually update fasting blood work 2. Type 2 diabetes mellitus: She wishes to update her A1c today to see if it has come down from 7.8. We discussed placing a CGM and also other medication possibilities 3. Hypothyroidism: Will update TSH on current level of supplementation. It was mildly elevated on last draw 4. Rheumatoid arthritis: Generally stable on Orencia. Will follow with rheumatology 5. History of paroxysmal A-fib: No obvious recurrence. EKG is stable today PLAN OF TREATMENT Future Test Test Name Order Date HEMOGLOBIN A1C 12/30/2023 Hemoglobin [id number] 12/20/2024 [id number] 12/20/2024 [id number] 07/18/2025 Next Appt Details Provider Name:JELANI SIFUENTES , 09/16/2025 08:45:00 AM, [address] [place], [address], Insurance Providers Payer Name Payer Address Payer Phone Subscriber Number Group Number Insured Name Patient Relationship to Insured Coverage Start Date Coverage End Date [employer] [address] [place] [phone] [id number] [facility] AMBIKA SUE Self - patient is the insured MEDICAL (GENERAL) HISTORY Medical History History ICD Code Disease : Impaired Fasting glucose, Disease : Rheumatoid Arthritis, Problems: Headache, Added Date: 06/28/20 15, Onset Date: 01/20/2010:Active Problems: Hypothyroidism, Ad ded Date: 06/28/2015, Onset Date: 01/20/2010:Active Problems: Impaired fasting g lycaemia, Added Date: 06/28/2015, Onset Date: 01/28/2014:Active Colonoscopy 11/11/24 Tammi malik yp benign- 5 year recall Surgical History Surgery Date(Month/Year) gastrointestinal, Disease : Infectious Colitis, Sx_Procedure : antibiotics 2008 Disease : PAMELA, Sx_Procedure : Partial vu lvectomy Disease : Atrial flutter/fibrillation, S x_Procedure : Ablation x 2
--- OUTSIDE RECORDS SUMMARY | 2025-08-21 07:43 | XMS_ITS | Encounter Summary ---
Author Organization [facility] Address [address] [facility] [address] [place] [address] Phone Care Team Providers Care Mine Geologist Name Role Phone Luke Jose MD Primary Care Provider [phone] Encounter Details Date Type Department Care Team (Late st Contact Info) Description 12/09/[address] [facility] [address] [facility] [address] [place] [address] Jessica Deleon MD [address] [place] [address] [email or web address] Seropositive rheumatoid arthritis Social History Tobacco Use Types Packs/Day Years [...] Description 12/23/2025 11:40 AM EDT Office Visit [facility] [place] [address] [place] [address] Magda Gee MD, MPH [address] [place] [phone] [email or web address] documented as of this encounter Results * XR HAND 3 OR MORE VIEWS (RIGHT) (12/09/2021 4:57 PM EST) Anatomical Region Laterality Modality Hand Right Computed Radiogr aphy 12/10/2021 8:15 AM EST Impressions 12/10/2021 8:25 AM EST Mildly progressed inflammatory arthritis in the wrist and MCP joints since the prior study. Narrative 12/10/2021 8:25 AM EST XR HAND 3 OR MORE VIEWS (RIGHT), XR HAND 3 OR MORE VIEWS (LEFT) COMPARISON: XR HAND 3 OR MORE VIEWS BILATERAL FINDINGS: Left hand: Erosive changes are redemonstrated in the carpus and in the bases of the metacarpals with with patchy areas of sclerosis and moderate to severe loss of joint space in the radiocarpal, intercarpal and carpometacarpal joints. There is remodeling of the carpus bones when compared to the previous study. Similar erosions at the first and second MCP joints. Mild soft tissue swelling around the wrist. Right hand: No fracture. Erosive changes are redemonstrated in the carpus and in the bases of the metacarpals with with patchy areas of sclerosis and moderate to severe loss of joint space in the radiocarpal, intercarpal and carpometacarpal joints. There is remodeling of the carpus bones when compared to the previous study. New erosions are noted at the third MCP and fifth MCP joint with soft tissue swelling around the wrist. Procedure Note Raman Jessica MD - 12/10/2021 XR HAND 3 OR MORE VIEWS (RIGHT), XR HAND 3 OR MORE VIEWS (LEFT) COMPARISON: XR HAND 3 OR MORE VIEWS BILATERAL FINDINGS: Left hand: Erosive changes are redemonstrated in the carpus and in thebases of the metacarpals with with patchy areas of sclerosis and moderateto severe loss of joint space in the radiocarpal, intercarpal andcarpometacarpal joints. There is remodeling of the carpus bones whencompared to the previous study. Similar erosions at the first and secondMCP joints. Mild soft tissue swelling around the wrist. Right hand: No fracture. Erosive changes are redemonstrated in the carpusand in the bases of the metacarpals with with patchy areas of sclerosisand moderate to severe loss of joint space in the radiocarpal, intercarpaland carpometacarpal joints. There is remodeling of the carpus bones whencompared to the previous study. New erosions are noted at the third MCPand fifth MCP joint with soft tissue swelling around the wrist. IMPRESSION: Mildly progressed inflammatory arthritis in the wrist and MCP joints sincethe prior study. Jessica Deleon MD IMG XR UPPER EXTR EMITY Final Result * XR HAND 3 OR MORE VIEWS (LEFT) (12/09/2021 4:57 PM EST) Anatomical Region Laterality Modality Hand Left Computed Radiogr aphy 12/10/2021 8:15 AM EST Impressions 12/10/2021 8:25 AM EST Mildly progressed inflammatory arthritis in the wrist and MCP joints since the prior study. Narrative 12/10/2021 8:25 AM EST XR HAND 3 OR MORE VIEWS (RIGHT), XR HAND 3 OR MORE VIEWS (LEFT) COMPARISON: XR HAND 3 OR MORE VIEWS BILATERAL FINDINGS: Left hand: Erosive changes are redemonstrated in the carpus and in the bases of the metacarpals with with patchy areas of sclerosis and moderate to severe loss of joint space in the radiocarpal, intercarpal and carpometacarpal joints. There is remodeling of the carpus bones when compared to the previous study. Similar erosions at the first and second MCP joints. Mild soft tissue swelling around the wrist. Right hand: No fracture. Erosive changes are redemonstrated in the carpus and in the bases of the metacarpals with with patchy areas of sclerosis and moderate to severe loss of joint space in the radiocarpal, intercarpal and carpometacarpal joints. There is remodeling of the carpus bones when compared to the previous study. New erosions are noted at the third MCP and fifth MCP joint with soft tissue swelling around the wrist. Procedure Note Raman eJssica MD - 12/10/2021 XR HAND 3 OR MORE VIEWS (RIGHT), XR HAND 3 OR MORE VIEWS (LEFT) COMPARISON: XR HAND 3 OR MORE VIEWS BILATERAL FINDINGS: Left hand: Erosive changes are redemonstrated in the carpus and in thebases of the metacarpals with with patchy areas of sclerosis and moderateto severe loss of joint space in the radiocarpal, intercarpal andcarpometacarpal joints. There is remodeling of the carpus bones whencompared to the previous study. Similar erosions at the first and secondMCP joints. Mild soft tissue swelling around the wrist. Right hand: No fracture. Erosive changes are redemonstrated in the carpusand in the bases of the metacarpals with with patchy areas of sclerosisand moderate to severe loss of joint space in the radiocarpal, intercarpaland carpometacarpal joints. There is remodeling of the carpus bones whencompared to the previous study. New erosions are noted at the third MCPand fifth MCP joint with soft tissue swelling around the wrist. IMPRESSION: Mildly progressed inflammatory arthritis in the wrist and MCP joints sincethe prior study. Jessicamariann Deleon MD IMG XR UPPER EXTR EMITY Final Result documented in this encounter Visit Diagnoses Diagnosis Seropositive rheumatoid arthritis Seropositive rheumatoid arthritis documented in this encounter Care Teams Mine Geologist Relationship Specialty Start Date End Date Luke Jose MD [address] [place] [address] PCP - General Internal Medicine 12/30/15 documented as of this encounter Additional Source Comments The information contained in this document represents components of the legal health record. It is not the complete legal health record.[facility]
--- OUTSIDE RECORDS SUMMARY | 2025-08-21 07:44 | XMS_ITS | Encounter Summary ---
Author Organization [facility] Address [address] [address] Phone Care Team Providers Care Vp Of Product Name Role Phone Luke Jose MD Primary Care Provider [phone] Reason for Referral * Consultation (Within 1 month) - Closed Specialty Diagnoses / Procedures Referred By Jericho ng Referred To Contact Gastroenterology Diagnoses Elevated LFTs System, Provider Not In, [facility] [address] [address] Kyle Feldman MD Phone: tel: fax: [email or web address] Referral ID Status Reason Start Date Expiration Date Visits Re quested Visits Authorized [id number] Closed 04/26/2018 04/26/2019 1 1 Encounter Details Date Type Department Care Team (Latest Contact Info) Description 04/26/2018 Transcribe Orders [facility] [address] [place] [address], [address] [place] [address] Kyle Feldman MD [address] [place] [phone] [email or web address] Elevated LFTs (Primary Dx) Social History Tobacco Use Types [...] Description 12/23/2025 11:40 AM EDT Office Visit [facility] [place] [address] [place] [address] Magda Gee MD, MPH [address] [place] [address] [email or web address] Scheduled Referrals Name Type Priority Associated Diagnoses Order Schedule Ambulatory referral to [facility] (Consult Requests Only) Outpatient Referral Routine Elevated LFTs Ordered: 04/26/2018 documented as of this encounter Visit Diagnoses Diagnosis Elevated LFTs- Primary Other abnormal blood chemistry documented in this encounter Care Teams Vp Of Product Relationship Specialty Start Date End Date Luke Jose MD [address] [place] [address] PCP - General Internal Medicine 12/30/15 documented as of this encounter Additional Source Comments The information contained in this document represents components of the legal health record. It is not the complete legal health record.[facility]
--- OUTSIDE RECORDS SUMMARY | 2025-08-21 07:44 | XMS_ITS | Encounter Summary ---
Author Organization [facility] Address [address] [address] Phone Care Team Providers Care Tank Charger Name Role Phone Luke Jose MD Primary Care Provider [phone] Reason for Visit * Reason Onset Date Comments Medication Refill 03/15/2017 Encounter Details Date Type Department Care Team (Late st Contact Info) Description 03/15/2017 Telephone [facility] 850 [facility] [address] [place] [address] Nelia Cadena LPN [address] [place], [place] [phone] Medication Refill Social History Tobacco Use Types Packs/Day Years [...] Description 12/23/2025 11:40 AM EDT Office Visit [facility] [address] [place] [address] Magda Gee MD, MPH [address] [place] [phone] [email or web address] documented as of this encounter Visit Diagnoses Not on filedocumented in this encounter Care Teams Tank Charger Relationship Specialty Start Date End Date Luke Jose MD [address] [place] [address] PCP - General Internal Medicine 12/30/15 documented as of this encounter Additional Source Comments The information contained in this document represents components of the legal health record. It is not the complete legal health record.[facility]
--- OUTSIDE RECORDS SUMMARY | 2025-08-21 07:44 | XMS_ITS | Encounter Summary ---
Author Organization [facility] Address [address] [place] [address] Care Team Providers Care Rubber Goods Cutter Finisher Name Role Phone Luke Jose Primary Care Provider Unavailabl e Encounter Details Date Type Department Care Team (Late st Contact Info) Description 07/15/2025 myChart Message [facility] Operating Room [address] [place] [address] Mychart, Generic Provider [address] [place] [address] Questionnaire Submission Social History Tobacco Use Types Packs/Day Years [...] Description 08/28/2025 7:15 AM EST Hospital Encounter [facility] Operating Room [address] [place] [address] Maryam Wills MD [address] [place] [address] 08/28/2025 7:15 AM EST Anesthesia Event [facility] Operating Room [address] [place] [address] Jenn Whyte DO [address] [place] [address] Jace Vargas PA [address] [place] [address] 08/28/2025 7:15 AM EST - 08/28/2025 9:05 AM EST Surgery [facility] Operating Room [address] [place] [address] Maryam Wills MD [address] [place] [address] EXCISION OF LEFT VULVAR SKIN AND SUBCUTANEOUS TISSUE WITH SIMPLE REPAIR [66660 (CPT )] 09/03/2025 2:00 PM EST Follow-Up [facility] ESCROW REPRESENTATIVE Oncology [address] [place] [address] Kennel Attendant: Marjorie Cantu BEHAVIORAL INTERVENTIONIST [address] [facility] [place] [address] 09/23/2025 1:15 PM EST Follow-Up [facility] REPRESENTATIVE Oncology [address] [place] [address] Kennel Attendant: Monica Wilson 10/21/2025 1:15 PM EST Office Visit [facility]CROW REPRESENTATIVE Oncology [address] [place] [address] Kennel Attendant: Monica Wilson 11/25/2025 11:45 AM EST Follow-Up [facility] ESCROW REPRESENTATIVE Oncology [address] [place] [address] Kennel Attendant: Maryam Greenberg MD [address] [place] [address] 08/27/2026 9:30 AM EST Appointment [facility] Cardiac Ultrasound [address] [place] [address] 08/27/2026 10:00 AM EST Follow-Up [facility] 4th floor Cardiology Medicine [address] [place] [address] Kennel Attendant: Meng Lagos II, MD [address] [place] [address] Scheduled Procedures Name Priority Associated Diagnoses Date/Ti me EXCISION, SKIN AND SUBCUTANEOUS TISSUE WITH SIMPLE REPAIR Differentiated vulvar intraepithelial neoplasia (dVIN) 08/28/2025 7:15 AM EST COLPOSCOPY OF VULVA Differentiated vulvar intraepithelial neoplasia (dVIN) 08/28/2025 7:15 AM EST documented as of this encounter Goals Goal Patient Goal Type Associated Problems Recent Progress Patient-Stated? Author Autogenerat ed Goal Care Plan Autogenerated Problem No Jolie Mackay documented as of this encounter Visit Diagnoses Not on filedocumented in this encounter Additional Health Concerns Active Problems Noted Date Diagnosed Date Autogenerated Problem 07/15/2025 documented as of this encounter Care Teams Rubber Goods Cutter Finisher Relationship Specialty Start Date End Date Luke Jose CARDIOLOGY & [place] [address] PCP - General Internal Medicine 04/23/19 documented as of this encounter
--- OUTSIDE RECORDS SUMMARY | 2025-08-21 07:44 | XMS_ITS | Clinical Summary ---
Author Organization [facility] Address [address] [place] [address] Care Team Providers Care Milking System Installer Name Role Phone Luke Jose Primary Care Provider [phone] Allergies Active Allergy Reactions Criticality Noted Date Comments Sulfamethoxazole W-Trimethoprim 11/09 Medications Multiple Vitamins-Minera ls (MULTIVITAMIN & MINERAL) Liquid None Entered A ctive Vitamin E 400 UNITS Cap 1 CAPSULE DAILY Active Levothyroxine Sodium 100 MCG Tab TAKE 1 TABLET BY MOUTH 5 DAYS PER WEEK AND 2 TABLETS 2 DAYS PER WEEK OR DIRECTED BY 11 05/16/2017 Active Ibuprofen 800 MG Tab None Entered 01/24/2017 Active Triamcinolone Acetonide 0.1 % Ointment None Entered 03/30/2017 Active Ketoconazole 2 % Cream None Entered 03/30/2017 Active ESTRADIOL VAGINAL (ESTRACE VAGINAL) 0.1 MG/GM Cream Use 1/4 inch internal vaginal area. Apply thin layer to external vaginal area twice a week. 1 Tube 6 03/15/2019 Active Clobetasol Propionate 0.05 % Ointment Apply thin layer to external vaginal area once a day x 3 weeks. 60 g 6 03/15/2019 Active MetFORMIN HCl (GLUMETZA) 500 MG 24 hr tablet Take 500 mg by mouth 1 (one) time each day. Active Active Problems Problem Noted Date Diagnosed Date Pap smear for cervical cancer screening 05/25/20 17 Overview (04/17/2019): 05/2018 nl pap and hpv - no prior pap hx - 5 yr pap with breast and pelvic annually 03/2019: pap neg, hvp neg, repeat pap 3-5 years per guidelines. Lichen sclerosus et atrophicus 12/10/2014 Labial fusion 12/10/2014 Encounters Date Type Department Care Team Description 07/28/2025 8:30 AM EDT [facility] Visit [facility] Optometry [address] [place] [address] Zak Otto, OD Encounter for eye exam (Primary Dx); Hyperopia, bilateral; Regular astigmatism, bilateral; Bilateral presbyopia from Last 3 Months Immunizations Immunization Administration Dates Next Due COVID-19, mRNA (Moderna Spik evax) Seasonal, 50 mcg/0.5 mL (12+) 02/14/2025,08/07/2024 COVID-19, mRNA (Pfizer Pre F all 2022) Monovalent, 30 mcg/0.3 ml 06/12/2021,01/30/2021,01/09/2021 Covid-19, mRNA (Pfizer Comir fish) Seasonal, 30 mcg/0.3 mL (12+) 07/10/2025,08/29/2023 Covid-19, mRNA (Pfizer Pre F all 2022) Bivalent, 30 mcg/0.3 ml emely-sucrose (12+) dose 07/10/2022 Covid-19, mRNA (Pfizer Pre F all 2022) Monovalent, 30 mcg/0.3 ml emely-sucrose (12+) 12/22/2021 Influenza,injectable,quad,Prsrv Fr 06/29,07/01/2022,07/20/2020,2017 PPV23 (Pneumovax) 04/06/2018 RSV Recombinant Adjuvant, 0. 5 ML (Arexvy) 07/15/2025 Tdap 06/24/2022 Zoster (Shingrix) 09/07/2018,06/13/2018 influenza,seasonal,trivalent ,PF (Fluzone, Fluarix, Flulaval) 07/01/2025,07/26/2024,08/26/2016 Family History Medical History Relation Name Comments Heart Disorder Father from [place] at age 74 Other Mother over weight, sp inal stenosis, scoliosis. Thyroid Disorder Mother Relation Name Status Comments Father Mother Alive Social History Tobacco Use Types Packs/Day Years Used Date Smoking Tobacco: Never Smokeless Tobacco: Never Alcohol Use Standard Drinks/Week Comments Yes 0 (1 standard drink = 0.6 oz pur e alcohol) ocasionally Intimate Partner Violence Answer Date R ecorded Fear of Current or Ex-Partner Not on file Emotionally Abused Not on file 06/10/2023 Physically Abused Not on file 06/10/2023 Sexually Abused Not on file 06/10/2023 Feel Safe at Home Not on file 06/10/2023 Comments No Sex and Gender Information Value Date Recorded Sex Assigned at Not on file Legal Sex Female 3:49 PM EST Gender Identity Not on file Sexual Orientation Not on file Last Filed Vital Signs Vital Sign Reading Time Taken Comments Blood Pressure 112/60 04/02/2019 9:13 AM EDT Pulse - - Temperature - - Respiratory Rate - - Oxygen Saturation - - Inhaled Oxygen Concentration - - Weight 68.9 kg (152 lb) 04/02/2019 9:13 AM EDT Height 172.7 cm (5' 8 ) 04/02/2019 9:13 AM EDT Body Mass Index 23.11 04/02/2019 9:13 AM EDT Plan of Treatment Upcoming Encounters Date Type Department Care Team (Late st Contact Info) Description 07/29/2026 8:45 AM EDT [facility]. Optometry [address] [place] [address] Zak Otto, OFELIA [address] [place] [address] est pt exam no dm no cl aodv aoir Health Maintenance Due Date Last Done Comments Mammogram/Breast Imaging 2001 Colon Cancer Screening 2006 Pneumococcal 50+ years (2 of 2 - PCV) 04/06/2019 04/06/2018 Pap Smear 05/15/2026 05/15/2023, 03/10, 05/22/2017 DTaP/Tdap/Td (2 - Td or Tdap) 06/24/2032 06/24/2022 Hepatitis C Screening Completed 06/27/2018 Zoster (Shingrix) Completed 09/07/2018, 06/13/2018 Influenza Completed 07/01/2025, 07/09, 06/29/2023, Additional history exists COVID-19 Vaccine Completed 07/10/2025, 06/2025, 08/07/2024, Additional history exists RSV Completed 07/15/2025 Eye/Retina Exam Discontinued 07/28/2025, 07/10, 07/28/2025, Additional history exists HPV Vaccine (No Doses Required) Completed Hep A Aged Out No longer eligi ble based on patient's age to complete this topic Hep B Aged Out No longer eligi ble based on patient's age to complete this topic Hib Aged Out No longer eligi ble based on patient's age to complete this topic Meningococcal ACWY Aged Out No longer eligible based on patient's age to complete this topic Zoster (Zostavax) Discontinued Procedures * Due to [facility] law, this organization might not be sharing negative HIV tests. Procedure Name Priority Date/Time Associated Diagnosis Comments THINPREP TIS PAP AND HPV RNA, HR E6/E7, TMA Routine 04/02/2019 12:28 PM EDT Screening for malignant neoplasm of cervix from Last 3 Months or Most Recently Relevant to Health Maintenance Results * Due to [place] [employer] law, this organization might not be sharing [...] evaluated with computer assisted technology. [facility] Beef Trimmer (Cvx/Vag) YP, CT(ASCP) CT screening location: [place] [address] [employer] COMMENT SEE NOTE [facility] Comment: EXPLANATORY [...] MRNA E6/E7 Not Detected Not Detected [facility] Comment: This test was performed using the APTIMA HPV Assay ([employer] This assay detects E6/E7 viral messenger RNA (mRNA) from 14 high-risk HPV types (16,18,31,33,35,39,45,51,52,56,58,59,66,68). The analytical performance characteristics of this assay have been determined by [employer]. The modifications have not been cleared or approved by the FDA. This assay has been validated pursuant to the CLIA regulations and is used for clinical purposes. Cervical 04/02/2019 12:2 8 PM EDT 04/02/2019 11:48 PM EDT Narrative Resulting Agency Comment [id number] Gurjit Martines NP PATHOLOGY-INTERFACED Final Resu lt [facility] [address] [place] [address] from Last 3 Months or Most Recently Relevant to Health Maintenance Insurance [facility] [employer] [place] [address] [phone] Care Teams Milking System Installer Relationship Specialty Start Date End Date Luke Jose CARDIOLOGY & INTERNAL MED [address] [address] PCP - General Internal Medicine 10/21/14
--- OUTSIDE RECORDS SUMMARY | 2025-08-21 07:44 | XMS_ITS | Clinical Summary ---
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 Active CHOLECALCIFEROL, VITAMIN D3, (VITAMIN D3 ORAL) Take by mouth 4 (four) times a week. Active VITAMIN E ACETATE ORAL Take by mouth 4 (four) times a week. Active MILK THISTLE ORAL Take by mouth daily. Active ASPIRIN ORAL Take 81 mg by mouth. Active turmeric/turmeri c ext/pepr ext (TURMERIC-TURMER IC EXT-PEPPER) 500-3 mg Cap Take by mouth daily. Active GARLIC ORAL Take 1 tablet by mouth daily. Active ONETOUCH VERIO Strp strips 1 Active clobetasol (TEMOVATE) 0.05 % cream Apply 1 application topically. Active estradioL (ESTRACE) 0.01 % (0.1 mg/gram) vaginal cream Place 1 g vaginally. Active ONETOUCH DELICA PLUS LANCET 30 gauge Misc 1 Active magnesium oxide (MAG-OX) 400 mg (241.3 mg elemental) tablet Take 400 mg by mouth 4 (four) times a week. Active nystatin cream Apply 1 application topically. 1 Active ORENCIA CLICKJECT 125 mg/mL subcutaneous auto-injectorInd ications:RA (rheumatoid arthritis) INJECT 1 PEN UNDER THE SKIN EVERY 7 DAYS 12 mL 1 5 Active metFORMIN (GLUCOPHAGE) 500 MG immediate release tablet Take 500 mg by mouth. 5 Active Active Problems Problem Noted Date Diagnosed Date Rheumatoid arthritis 01/23/2016 Encounters Date Type Department Care Team Description 07/01/2025 11:36 AM EDT - 07/01/2025 11:59 PM EDT Hospital Encounter [facility] Phlebotomy, [facility] [address] [place] [address] Magda Gee MD, MPH Discharge Disposition: Home or Self Care 07/01/2025 10:00 AM EDT Office Visit [facility] [address] [place] [address] [place] [address] Magda Gee MD, MPH Need for influenza vaccination (Primary Dx); Seropositive rheumatoid arthritis; Medication monitoring encounter from Last 3 Months Immunizations Immunization Administration Dates Next Due COVID-19 (Pre-07/31) Pfizer Vaccine, mRNA, PF 12/22/2021,01/30/2021,01/09/2021 INFLUENZA, SPLIT VIRUS, TRIVALENT PF 07/01/2025, 07/26/2024,08/26/2016 Influenza Quadrivalent Preservative Free IM 07/09,09/07/2018 Pneumococcal polysaccharide PPSV23 04/06/2018 Tdap 06/24/2022 Zoster recombinant 09/07/2018,06/13/2018 Family History Medical History Relation Comments Hypertension Mother Obesity Mother Thyroid disease Mother Coronary artery disease Neg Hx Lupus Neg Hx Multiple sclerosis Neg Hx Psoriasis Neg Hx Rheumatoid arthritis Neg Hx Relation Status Comments Mother Social History Tobacco Use Types Packs/Day Years Used Date Smoking Tobacco: Former Smokeless Tobacco: Never Tobacco Cessation:Counseling Given: Not Answered Alcohol Use Standard Drinks/Week Comments Not Asked [...] high school, GED, job training, learning the Danish language, technical skills, or developing parenting skills)? [...] Sign Reading Time Taken Comments Blood Pressure 119/68 07/01/2025 10:13 AM EDT Pulse 83 07/01/2025 10:13 AM EDT Temperature 36.6 C (97.8 F) 07/01/2025 10:13 AM EDT Respiratory Rate 18 07/20/2018 1:30 PM EDT Oxygen Saturation 99% 07/01/2025 10:13 AM EDT Inhaled Oxygen Concentration - - Weight 80.3 kg (177 lb) 07/01/2025 10:13 AM EDT Height 172.7 cm (5' 8 ) 07/01/2025 10:13 AM EDT Body Mass Index 26.91 07/01/2025 10:13 AM EDT Plan of Treatment Upcoming Encounters Date Type Department Care Team (Late st Contact Info) Description 12/23/2025 11:40 AM EDT Office Visit [facility] [place] [address] [place] [address] Magda Gee MD, MPH [address] [place] [address] [email or web address] Health Maintenance Due Date Last Done Comments DEPRESSION SCREENING 1973 SMOKING Hx and SMOKELESS TOBACCO SCREENING 1974 HIV ONE-TIME SCREENING (18-65 YEARS) 1979 PAP SMEAR 1982 MAMMOGRAM 2001 COLOGUARD 2006 COLONOSCOPY 2006 COLORECTAL CANCER SCREENING 2006 FIT TEST 2006 FOBT 2006 SIGMOIDOSCOPY 2006 VIRTUAL COLONOSCOPY 2006 RSV VACCINE (1 - Risk 50-74 years 1-dose series) 2011 PNEUMOCOCCAL VACCINES (50+ years) (2 of 2 - PCV) 04/06/2019 04/06/2018 TSH LEVEL 02/19/2024 02/18/2023, 12/2 10/2020, 11/25/2019, Additional history exists COVID-19 VACCINE ( season) 2025 02/14/2025, 08/07/2024, 08/29/2023, Additional history exists CREATININE LEVEL 07/01/2026 07/01/2025, 03/2025, 01/30/2024, Additional history exists LIPID PANEL 02/19/2028 02/18/2023, 09/09, 10/06/2021 SCREENING FOR DIABETES 07/01/2028 07/01/2025 Adult Td,Tdap Booster 06/24/2032 06/24/2022 HEPATITIS C SCREENING Completed 06/27/2018, 018 ZOSTER VACCINES Completed 09/07/2018, 06/13/2018 INFLUENZA VACCINE Completed 07/01/2025, , 06/29/2023, Additional history exists HEPATITIS A VACCINES Aged Out No long er eligible based on patient's age to complete this topic HIB VACCINES Aged Out No longer eligi ble based on patient's age to complete this topic IPV VACCINES Aged Out No longer eligi ble based on patient's age to complete this topic MENINGOCOCCAL VACCINES (ACWY) Aged Out No longer eligible based on patient's age to complete this topic MENINGOCOCCAL VACCINES (B) Aged Out N o longer eligible based on patient's age to complete this topic Medical Devices Not on file Procedures Procedure Name Priority Date/Time Associated Diagnosis Comments COMPREHENSIVE METABOLIC PANEL (CMP) Routine 07/01/2025 11:54 AM EDT Need for influenza vaccination Seropositive rheumatoid arthritis CBC AND DIFFERENTIAL Routine 07/01/2025 11:54 AM EDT Need for influenza vaccination Seropositive rheumatoid arthritis SEDIMENTATION RATE (ESR) Routine 07/01/2025 11:54 AM EDT Need for influenza vaccination Seropositive rheumatoid arthritis C-REACTIVE PROTEIN (CRP), HIGH SENSITIVITY Routine 07/01/2025 11:54 AM EDT Need for influenza vaccination Seropositive rheumatoid arthritis HEPATITIS C ANTIBODY, QUALITATIVE Routine 06/27/2018 9:39 AM EDT Abnormal LFTs THYROID STIMULATING HORMONE (TSH) Routine 01/22/2016 2:18 PM EDT from Last 3 Months or Most Recently Relevant to Health Maintenance Results * (ABNORMAL) C-reactive protein, high sensitivity (07/01/2025 11:54 AM EDT) CRP, HIGH SENSITIVITY 5.7(H) 0.0 - 3.0 mg/L [facility] Comment: For cardiac risk assessment, reference range is <3.0mg/L. For inflammation assessment, reference range is <10.0mg/L. Blood 07/01/2025 11:5 4 AM EDT 07/01/2025 12:24 PM EDT Magda Gee MD, MPH LAB BLOOD BKR ORDERABLES Final Result [facility] [address] [place] [address] * (ABNORMAL) Comprehensive metabolic panel (07/01/2025 11:54 AM EDT) SODIUM 138 136 - 145 mmol/L [facility] POTASSIUM 4.7 3.4 - 5.1 mmol/L [facility] CHLORIDE 100 98 - 107 mmol/L [facility] CO2 25 22 - 31 mmol/L [facility] BUN 14 6 - 23 mg/dL [facility] CREATININE 0.88 0.50 - 1.20 mg/dL [facility] GLUCOSE 117(H) 70 - 100 mg/dL [facility] ALBUMIN 4.2 3.5 - 5.2 g/dL [facility] TOTAL PROTEIN 7.8 6.4 - 8.3 g/dL [facility] CALCIUM 9.5 8.8 - 10.7 mg/dL [facility] ALKALINE PHOSPHATASE 103 35 - 130 U/L [facility] TOTAL BILIRUBIN 0.4 0.0 - 1.0 mg/dL [facility] AST 24 10 - 50 U/L [facility] ALT 21 10 - 50 U/L [facility] GLOBULIN 3.6 2.2 - 4.2 g/dL [facility] EGFR 73 >59 mL/min/1. 73m2 [facility] Comment:Estimated glomerular filtration rate calculated using the CKD-EPI refit equation. ANION GAP 13 7 - 17 mmol/L [facility] Blood 07/01/2025 11:5 4 AM EDT 07/01/2025 12:24 PM EDT Magda Gee MD, MPH LAB BLOOD BKR ORDERABLES Final Result Performing Organization Address City/[facility]/ZIP Co de Phone Number [facility] [address] [place] [address] * Sedimentation rate (ESR) (07/01/2025 11:54 AM EDT) ESR 18 0 - 30 mm/h [facility] Comment:Erythrocyte Sediment ation Rate (ESR) reference range change effective 08/19/2019. Blood 07/01/2025 11:5 4 AM EDT 07/01/2025 12:24 PM EDT us Magda Gee MD, MPH LAB BLOOD BKR ORDERABLES Final Result Performing Organization Address [facility] Co de Phone Number [facility] [address] [place] [phone] * CBC and differential (07/01/2025 11:54 AM EDT) WBC 7.60 4.00 - 11.00 K/uL [facility] RBC 4.67 4.00 - 5.20 M/uL [facility] HGB 13.1 12.0 - 16.0 g/dL [facility] HCT 41.0 36.0 - 46.0 % [facility] PLT 260 150 - 450 K/uL [facility] MCV 87.8 80.0 - 100.0 fL [facility] MCH 28.1 27.0 - 31.0 pg [facility] MCHC 32.0 32.0 - 36.0 g/dL [facility] RDW 13.9 11.5 - 14.5 % [facility] MPV 10.2 8.4 - 12.0 fL [facility] NRBC 0.00 0.00 /100 WBCs [facility] ABSOLUTE NRBC 0.00 0.00 K/uL [facility] DIFF METHOD Auto [facility] NEUTS 68.1 48.0 - 76.0 % [facility] LYMPHS 19.6 18.0 - 41.0 % [facility] MONOS 8.0 4.0 - 11.0 % [facility] EOS 3.3 0.0 - 5.0 % [facility] BASOS 0.7 0.0 - 1.5 % [facility] % IMMATURE GRANS 0.3 0.0 - 0.9 % [facility] ABSOLUTE NEUTS 5.18 1.92 - 7.60 K/uL [facility] Comment:1.21-5.39 cells/KL i s the reference range for individuals with the Mullins null phenotype ABSOLUTE LYMPHS 1.49 0.72 - 4.10 K/uL [facility] ABSOLUTE MONOS 0.61 0.16 - 1.10 K/uL [facility] ABSOLUTE EOS 0.25 0.00 - 0.50 K/uL [facility] ABSOLUTE BASOS 0.05 0.00 - 0.15 K/uL [facility] ABS IMMATURE GRANS 0.02 0.00 - 0.09 K/uL [facility] ABSOLUTE NEUTROPHIL COUNT 5.18 1.92 - 7.60 K/uL [facility] Comment: Automated cell count. Manual ANC may differ if performed. 1.21-5.39 cells/KL is the reference range for individuals with the Mullins null phenotype Blood 07/01/2025 11:5 4 AM EDT 07/01/2025 12:24 PM EDT us Magda Gee MD, MPH LAB BLOOD BKR ORDERABLES Final Result Performing Organization Address City/[facility]/ZIP Co de Phone Number [facility] [address] [place] [phone] * Hepatitis C antibody, qualitative (06/27/2018 9:39 AM EDT) HCV ANTIBODY Negative Negative [facility] Comment:Antibodies to HCV no t detected. Does not exclude the possibility of exposure to HCV. 06/27/2018 9:39 AM EDT 06/27/2018 11:17 AM EDT us Kyle Feldman MD LAB BLOOD BKR ORDERABLES Final Result [facility] [address] [place] [address] * TSH (01/22/2016 2:18 PM EDT) TSH 1.41 0.50 - 5.70 uIU/mL [address] [facility] 01/22/2016 2:18 PM EDT 01/22/2016 2:19 PM EDT Jessica Deleon MD LAB BLOOD BKR ORD ERABLES Final Result Performing Organization Address City/State/[facility] Co de Phone Number [address] [facility] [address] [place] [address] from Last 3 Months or Most Recently Relevant to Health Maintenance Insurance [facility] Care Teams Pulp Grinder Feeder Relationship Specialty Start Date End Date Luke Jose MD [address] [place] [address] PCP - General Internal Medicine 12/30/15 Additional Source Comments The information contained in this document represents components of the legal health record. It is not the complete legal health record.[facility]
--- OUTSIDE RECORDS SUMMARY | 2025-08-21 07:44 | XMS_ITS | Clinical Summary ---
Author Organization [facility] Address [address] [place] [address] Care Team Providers Care Furniture Sales Consultant Name Role Phone Luke Jose Primary Care Provider Unavailabl e Allergies Active Allergy Reactions Criticality Noted Date Comments Amoxicillin Tachycardia 11/22/2019 Sulfamethoxazole-Trimethoprim Hives 2018 Ragweed Pollen Rhinorrhea 11/22/2019 Medications vitamin E 400 unit capsule Take 400 Units by mouth once a day. 4 times per week Active levothyroxine (SYNTHROID, LEVOTHROID) 137 mcg tablet Take 150 mcg by mouth daily. 6 days per week takes 150 mg daily, one day 225 mcg Active GARLIC ORAL Take 1 tablet by mouth once a day. Active MILK THISTLE ORAL Take 1 tablet by mouth once a day. Active cholecalciferol (VITAMIN D3) 2,000 unit capsule Take 1 capsule by mouth daily. Active turmeric/turmer ic ext/pepr ext (turmeric-turme kurtis ext-pepper) 500-3 mg capsule Take 1 tablet by mouth daily. Active ONETOUCH DELICA PLUS LANCET 11/23/19 20 Active ONETOUCH VERIO SYSTEM misc 08/07/20 19 Active OneTouch Verio test strips 10/05/20 20 Active Orencia ClickJect 125 mg/mL subcutaneous auto-injector Inject 125 mg under the skin per week. 02/03/20 21 Active nystatin 100,000 unit/gram cream Apply 1 application topically to the affected area 2 times a day. 07/20/20 21 Active magnesium oxide (MAG-OX) 400 mg (241.3 mg mag) tablet Take 400 mg by mouth once a day. 4 times per week Active aspirin 81 mg EC tablet Take 81 mg by mouth once a day. Active urea 40 % lotion Apply 1 Application topically to the affected area as needed. 02/08/20 23 Active zinc sulfate (ZINC-15 ORAL) Take 15 mg by mouth every 48 hours. 07/10/20 23 Active estradioL (ESTRACE) 0.01 % (0.1 mg/gram) vaginal cream INSERT 1G INTO VAGINA TWICE A WEEK 42.5 g 1 01/26/20 24 Active triamcinolone acetonide (KENALOG) 0.1% cream 04/15/20 24 Active metFORMIN (GLUCOPHAGE) 500 mg tablet Take 500 mg by mouth 2 times a day with meals. Active clobetasoL (TEMOVATE) 0.05% cream APPLY TO VULVA EVERY OTHER DAY 45 g 1 08/13/20 25 Active PATIENT REPORTED OTC MEDICATION Medication Name: Signal (Elysium) This entry is to document a patient-report ed over the counter medication. Please do not continue this order for inpatient use. Active clobetasoL (TEMOVATE) 0.05% cream APPLY TO VULVA EVERY OTHER DAY 45 g 1 01/26/20 24 025 Discontinued Active Problems Problem Noted Date Diagnosed Date Hypothyroid 08/14/2025 Overview (08/14/2025): don't remember start Atrial flutter 08/14/2025 History of cancer of vulva 08/02/2024 Dilatation of thoracic aorta 10/21/2021 Assessment & Plan (10/21/2021 12:08 PM EST): This was observed on her cardiac CT. Would plan to follow this up with echocardiogram approximately on an annual basis Chest tightness 10/06/2021 Assessment & Plan (10/06/2021 11:15 AM EST): Pt with mild chest chest tightness that is worse when lying flat and improves when she sits up and leans forward, she also feels that intermittently worse when she takes a deep breath. EKG showed NSR HR 94 , no clear PA depression, no evidence of acute ischemic changes. Pt received Toradol IV with good effect. -start Colchicine 0.6mg PO daily for two weeks - ekg PRN chest pain Dizziness 10/05/2021 Assessment & Plan (10/06/2021 11:15 AM EST): Patient presenting for successful combined atrial fibrillation / typical atrial flutter ablation. Mrs. Encarnacion began to endorse significant nausea without vomiting with associated vertigo-like symptoms upon transport from PACU to cardiac short stay. She describes room spinning with positional head movement. The patient received Zofran and Decadron with minor improvement. Upon further discussion with the patient, she does endorse a prior episode of nausea with anesthesia, and does report occasional motion sickness when riding in a car. A comprehensive neurologic exam revealed no focal deficits beyond her reported dizziness. Last known well time 15:30. Case discussed with cardiology attending, given her ongoing symptoms a code stroke was called to rule out rosana-procedural embolic vs. hemorrhagic CVA. CT head without contrast reveals no acute intracranial abnormality. [place]-Hallpike negative when performed by Neurology. Patient denied any dizziness or wooziness, or movement in her head the morning of 10/06/21. Neuro exam with no focal deficits on 10/06 prior to discharge - Follow up neurology recommendations. Shortness of breath 08/26/2021 Rheumatoid arthritis 08/26/2021 Assessment & Plan (08/26/2021 12:02 PM EST): She tells me that for all of her previous procedures/surgeries, she has held Orencia for 1 dose or 2. I think that this is reasonable for this procedure as well. 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 [id number] score is 1 (gender only). She is on Eliquis 5 mg twice daily. We will plan to continue this for 3 months post ablation which would take her through the end of December 2021. She was previously taking aspirin 81 mg a day for primary prevention of cardiovascular disease. She is not taking aspirin while on Eliquis. For rate control, she is now taking diltiazem 300 mg a day. Her sinus rate had increased following ablation. We discussed that this is a relatively common finding following A. fib cryoablation. For rhythm control, she is now status post A. fib cryoablation 09/2021. She had concomitant typical flutter ablation. Following ablation, she developed a bump in both access sites. Clinically, this appears to be related to the hemostasis devices. One actually was expressed through the skin, on the left groin. Skin is now intact, without any tenderness or fluctuance. She is on doxycycline, which was empirically started when she first called, and will continue for a full 1 week course, which I think is reasonable. We did discuss that the collagen will gradually resorb. Assessment & Plan (10/06/2021 6:42 AM EST): See AFlutter above, s/p ablation on 10/05/21 -on diltiazem 240 and Eliquis 5 BID Assessment & Plan (09/23/2021 4:43 PM EST): As best we can tell, Kellen does not have primary atrial fibrillation. We are fortunate enough to capture twelve-lead EKG of atrial flutter which later degenerated into atrial fibrillation then reverted to sinus rhythm on its own. Between now and flutter ablation, will perform 30d monitor to be thorough, however, she endorses symptoms are the same as when documented to be in typical flutter in the past and her heart rate was ~150bpm which would be expected for atrial flutter as well. ADDENDUM 09/23/21: Kellen's monitor has consistently shown multiple episodes of primary atrial fibrillation, without atrial flutter preceding it. Thus, she clearly has atrial fibrillation as a primary arrhythmia. I called her to discuss this with her and went over 2 options. The first being ablation for atrial flutter as planned, and then medical management with antiarrhythmic for atrial fibrillation versus doing a combined ablation procedure for atrial fibrillation and atrial flutter. We did discuss that atrial fibrillation is a curable arrhythmia, and ablation for atrial fibrillation is more complex as we had previously discussed. After going over this, this is having very frequent palpitations that correlate with atrial fibrillation on nearly a daily basis, and would like to proceed with a combined A. fib/atrial flutter ablation. I'll perform an A. fib cryoablation, followed by typical flutter ablation, use CARTO mapping, Thus, I have contacted our schedulers, ordered a cardiac CT scan, and will arrange for this to be performed prior to her ablation. I again reiterated that she needs to continue her Eliquis 5 mg twice daily continuously throughout the ablation. She understands this, and has not missed any doses. Assessment & Plan (12/25/2019 9:55 AM EDT): As best we can tell, Kellen does not have primary atrial fibrillation. We are fortunate enough to capture twelve-lead EKG of atrial flutter which later degenerated into atrial fibrillation then reverted to sinus rhythm on its own. Atrial flutter 10/09/2019 Overview (12/25/2019): charles Haider Assessment & Plan (10/21/2021 12:00 PM EST): Had typical atrial flutter by twelve-lead EKG. Status post typical flutter ablation September 2021 along with A. fib cryoablation Assessment & Plan (10/06/2021 11:14 AM EST): 61-year-old female patient with diagnosed atrial flutter in November 2019. [id number] = 1. Home medications include Eliquis 5mg PO BID, Diltiazem 240mg PO daily. Now s/p successful ablation for typical atrial flutter, and a successful atrial fibrillation cryoablation with entrance and exit block present in all 4 pulmonary veins at case completion. Hemostasis with Vascade venous closure devices. Of note, the patient experienced significant nausea with vertigo-like symptoms post procedurally. Code stroke was activated with no acute findings on head CT. She was subsequently admitted for overnight observation/extended recovery. - Continue home Diltiazem 240mg PO daily. - Continue Eliquis 5mg PO BID. Assessment & Plan (08/26/2021 12:03 PM EST): Kellen had new onset symptomatic typical atrial flutter on 2019. She reverted to normal sinus rhythm spontaneously. Since them she did well, but had 3 episodes in the past month which we identical she says to previous episodes, and HR was 150bpm. Regarding rate control, she takes diltiazem 120 mg daily. Regarding rhythm control, she has not been on any antiarrhythmic drugs or ever been cardioverted. For anticoagulation, her chads vas score is 1 for being female only. She is not taking any anticoagulants at this time. I wrote her a prescription for Eliquis 5mg BID which she will start tomorrow, and continue uninterrupted for 2-3 months post ablation She is clear that she should stop aspirin while taking Eliquis After going over risks and benefits and rationale for an ablation for atrial flutter, Kellen and her Aubrey would like to proceed. With that, I have entered a case request for typical flutter ablation, labs, and Covid Test. I will use CARTO mapping Assessment & Plan (12/25/2019 9:57 AM EDT): Kellen had new onset symptomatic typical atrial flutter on 2019. She reverted to normal sinus rhythm spontaneously. Regarding rate control, she takes diltiazem 120 mg daily. Regarding rhythm control, she has not been on any antiarrhythmic drugs or ever been cardioverted. For anticoagulation, her chads vas score is 1 for being female only. She is not taking any anticoagulants at this time, but has a prescription for Eliquis if needed. After going over risks and benefits and rationale for an ablation for atrial flutter, Kellen and her stand with very likely like to proceed. However, would first like to see how things go with traditional Turkish medicine. We did discuss the anatomic nature of typical atrial flutter and long-term stroke risk, as well as increased risk of developing atrial fibrillation as a primary arrhythmia. With that, we have scheduled a follow-up appointment in 6 months to revisit this idea. Also, we discussed that if she is having more symptoms and would like to undergo an ablation, that she simply can call me and we can set it up over the phone. I would plan to do an atrial flutter ablation using CARTO mapping. She also would start her Eliquis 5 mg twice daily about 1 month prior to the procedure, take it for a full month after the procedure, and wear a 30-day monitor thereafter. 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 Overview (08/14/2025): date approximate Encounters Date Type Department Care Team Description 08/14/2025 10:00 AM EST Follow-Up [address] Cardiology Medicine [address] [place] [phone] Carton Repairer: Meng Lagos II, MD Paroxysmal atrial fibrillation (Primary Dx); Typical atrial flutter ; Ascending aorta dilatation; Preoperative cardiovascular examination 08/14/[address] Cardiology Medicine [address] [place] [address] Carton Repairer: Meng Lagos II, MD 08/13/2025 Refill [facility] [employer] [facility] On[facility] [address] [place] [phone] Carton Repairer: Maryam Greenberg MD 07/15/2025 myChart Message [facility] Operating Room [address] [place] [address] Mychart, Generic Provider Questionnaire Submission 07/12/2025 myChart Message [facility] [employer] [facility] [facility] [address] [place] [phone] Carton Repairer: Maryam Greenberg MD Appt for excision 07/11/2025 Prep for Case [facility] [employer] [facility] [address] [place] [phone] Carton Repairer: Maryam Greenberg MD Differentiated vulvar intraepithelial neoplasia (dVIN) (Primary Dx) 07/01/2025 Telephone [facility] [employer] [facility] [address] [place] [phone] Carton Repairer: Maryam Greenberg MD 06/24/2025 1:15 PM EDT Follow-Up [facility] [employer] [facility] [facility] [address] [place] [phone] Carton Repairer: Maryam Greenberg MD PAMELA III (vulvar intraepithelial neoplasia III) (Primary Dx) from Last 3 Months Family History Medical History Relation Name Comments Aneurysm Father Colon polyps Father Hypertension Mother Hypothyroidism Mother Scoliosis Mother Relation Name Status Comments Father pre-diabetes Mother Alive Social History Tobacco Use Types Packs/Day Years Used Date Smoking Tobacco: Never Smokeless Tobacco: Never Tobacco Cessation:Counseling Given: Not Answered Alcohol Use Standard Drinks/Week Comments Not Currently 0 (1 standard drink = 0.6 oz pur e alcohol) rarely Comments No Sex and Gender Information Value Date Recorded Sex Assigned at Female 04/29/2019 8:40 PM EDT Legal Sex Female 1:48 PM EDT Gender Identity Female 04/29/2019 8:40 PM EDT Sexual Orientation Straight 04/29/2019 8: 40 PM EDT Last Filed Vital Signs Vital Sign Reading Time Taken Comments Blood Pressure 109/74 08/14/2025 10:05 AM EST Pulse 91 08/14/2025 10:05 AM EST Temperature 36.7 C (98 F) 08/02/2024 1:18 PM EDT Respiratory Rate 18 08/14/2025 10:05 AM EST Oxygen Saturation 98% 08/14/2025 10:05 AM EST Inhaled Oxygen Concentration - - Weight 82.1 kg (181 lb) 08/14/2025 10:05 AM EST Height 172.7 cm (5' 8 ) 08/14/2025 10:05 AM EST Body Mass Index 27.52 08/14/2025 10:05 AM EST Plan of Treatment Upcoming Encounters Date Type Department Care Team (Latest Contact Info) Description 08/28/2025 7:15 AM EST Hospital Encounter [facility] Operating [facility] [address] [place] [address] Maryam Wills MD [address] [place] [address] 08/28/2025 7:15 AM EST Anesthesia Event [facility] Operating Room [address] [place] [address] Jenn Whyte, DO [address] [place] [phone] Jace Vargas PA [address] [place] [address] 08/28/2025 7:15 AM EST - 08/28/2025 9:05 AM EST Surgery [facility] Operating Room [address] [place] [address] Maryam Wills MD [address] [place] [id number] EXCISION OF LEFT VULVAR SKIN AND SUBCUTANEOUS TISSUE WITH SIMPLE REPAIR [49215 (CPT )] 09/03/2025 2:00 PM EST Follow-Up [facility] [address] [place] [phone] Carton Repairer: Marjorie Cantu NP [address] [facility] [place] [address] 09/23/2025 1:15 PM EST Follow-Up [facility] [employer] [facility] [facility] [address] [place] [phone] Carton Repairer: Monica Wilson 10/21/2025 1:15 PM EST Office Visit [facility] [employer] [facility] [facility] [address] [place] [phone] Carton Repairer: Monica Wilson 11/25/2025 11:45 AM EST Follow-Up [facility] [employer] [facility] [facility] [address] [facility] - [place] [address] Carton Repairer: Maryam Greenberg MD [address] [place] [address] 08/27/2026 9:30 AM EST Appointment [facility] Cardiac Ultrasound [address] [place] [address] 08/27/2026 10:00 AM EST Follow-Up [facility] 4th floor Cardiology Medicine [address] [place] [address] Carton Repairer: Meng Lagos II, MD [address] [place] [address] Scheduled Procedures Name Priority Associated Diagnoses Date/Ti me EXCISION, SKIN AND SUBCUTANEOUS TISSUE WITH SIMPLE REPAIR Differentiated vulvar intraepithelial neoplasia (dVIN) 08/28/2025 7:15 AM EST COLPOSCOPY OF VULVA Differentiated vulvar intraepithelial neoplasia (dVIN) 08/28/2025 7:15 AM EST Health Maintenance Due Date Last Done Comments Cologuard 1961 Colon Cancer Screening 1961 Colonoscopy 1961 FOBT / Fit Test 1961 HIV Screening 1961 HPV and Pap Smear 1961 Sigmoidoscopy 1961 Mammogram 2001 Pneumococcal Vaccine: 50+ Years (2 of 2 - PCV) 04/06/2019 04/06/2018 Hemoglobin A1C 04/06/2022 10/06/2021 Urine Microalbumin 02/19/2024 02/18/2023 Alcohol/Substance Use Screening 10/09/2024 Depression Screening and Follow-Up 10/09/2024 Social Drivers of Health Annual Screening 10/09/2024 Cervical Cancer Screening 05/15/2026 Pap Smear 05/15/2026 05/15/2023, 04/17/2020 Basic Metabolic Panel 07/01/2026 07/01/2025 , 02/11/2025, 08/04/2024, Additional history exists Ophthalmology Exam 07/28/2026 07/28/2025 DTaP,Tdap,and Td Vaccines (2 - Td or Tdap) 06/24/2032 06/24/2022 Hepatitis C Screening Completed 06/27/2018 Zoster Vaccines Completed 09/07/2018, 06/13/2018 Diabetes Screening Discontinued 07/01/2025, 0 02/11/2025, 08/04/2024, Additional history exists Influenza Vaccine Completed 07/01/2025, , 06/29/2023, Additional history exists COVID-19 Vaccine Completed 07/10/2025, 06/2025, 08/07/2024, Additional history exists RSV Vaccine (60+ years old and patients) Completed 07/15/2025 Hepatitis B Vaccines Aged Out No long er eligible based on patient's age to complete this topic Goals Goal Patient Goal Type Associated Problems Recent Progress Patient-Stated? Author Autogenerat ed Goal Care Plan Autogenerated Problem No Jolie [employer] Medical Devices Implanted Type Area Market Editor Device Identifier Shelf Expiration Date Model / Serial / Lot System Closure Vascular Venous Mvp 6-12fr Vascade - S0 - [id number] Implanted:Qty: 1 on 10/05/2021 by Aneesh Costa MD at [facility] Implant Left: Groin [employer] [id number] 07/19/2023 800-612C-1 0U / 0 / [id number] System Closure Vascular Venous Mvp 6-12fr Vascade - S0 - [id number] Implanted:Qty: 1 on 10/05/2021 by Aneehs Costa MD at [facility] Implant Left: Groin [employer] [id number] 08/03/2023 800-612C-1 0U / 0 / [id number] System Closure Vascular Venous Mvp 6-12fr Vascade - S0 - [id number] Implanted:Qty: 1 on 10/05/2021 by Aneesh Costa MD at [facility] Implant Right: Groin [employer] [id number] 07/19/2023 800-612C-1 0U / 0 / [id number] System Closure Vascular Venous Mvp 6-12fr Vascade - S0 - [id number] Implanted:Qty: 1 on 10/05/2021 by Aneesh Costa MD at [facility] Implant Right: Groin [employer] [id number] 07/19/2023 800-612C-1 0U / 0 / [id number] Procedures * Due to [place] [employer] law, this organization might not be sharing negative HIV tests. Procedure Name Priority Date/Time Associated Diagnosis Comments ECG 12-LEAD Routine 08/14/2025 10:08 AM EST Typical atrial flutter TISSUE EXAM Routine 06/24/2025 2:27 PM EDT PAMELA III (vulvar intraepithelial neoplasia III) COMPREHENSIVE METABOLIC PANEL Routine 08/04/2024 12:39 PM EDT Seropositive rheumatoid arthritis of multiple sites PAP Routine 05/15/2023 4:12 PM EDT History of cancer of vulva MICROALBUMIN, RANDOM URINE WITH CREATININE Routine 02/18/2023 11:02 AM EDT Routine general medical examination at a health care facility Avitaminosis D Myxedema heart disease HEMOGLOBIN A1C Routine 10/06/2021 6:11 AM EST from Last 3 Months or Most Recently Relevant to Health Maintenance Results * Due to [place] [employer] law, this organization might not be sharing negative HIV tests. * ECG 12 lead (08/14/2025 10:08 AM EST) Ventricular Rate EKG 91 BPM MUSE EKG Atrial Rate 91 BPM MUSE EKG PA Interval 150 ms MUSE EKG QRS Interval 84 ms MUSE EKG QT Interval 356 ms MUSE EKG QTC Interval 437 ms MUSE EKG P [place] 51 degrees MUSE EKG R [place] 5 degrees MUSE EKG T Wave [place] 36 degrees MUSE EKG 08/14/2025 10:0 8 AM EST 08/14/2025 10:19 AM EST Impressions MUSE EKG - 08/14/2025 10:19 AM EST NORMAL SINUS RHYTHM RSR' IN V1+V2 WHEN COMPARED WITH ECG OF 08-Aug-2024 10:22, NO SIGNIFICANT CHANGE WAS FOUND Confirmed by Meng Haider ([id number]) on 08/14/2025 10:19:17 AM Narrative Procedure Note Meng Haider II, MD - 08/14/2025 IMPRESSION: NORMAL SINUS RHYTHM RSR' IN V1+V2 WHEN COMPARED WITH ECG OF 08-Aug-2024 10:22, NO SIGNIFICANT CHANGE WAS FOUND Confirmed by Meng Haider ([id number]) on 08/14/2025 10:19:17 AM us Aneesh Costa MD ECG ORDERABLES Final Result MUSE EKG * (ABNORMAL) Tissue Exam (06/24/2025 2:27 PM EDT) Final Diagnosis Specimen #1 - Vulva (Lower Left), Biopsy: - Skin with dermal fibrosis and pigment incontinence, no dysplasia or malignancy identified. Specimen #2 - Vulva (Upper Left), Biopsy: - Focal differentiated vulvar intraepithelial neoplasia (dVIN), see note. Note: Immunohistochemical stains demonstrate mutant type expression of p53 and increased Ki67 in the atypical basal and suprabasal cells, supporting the diagnosis. Additional levels were examined. [facility] 5 11:30 AM EDT [facility] at 1130 EDT Clinical History PAMELA 3 [facility] 5 11:30 AM EDT [facility] ANATOMIC PATHOLOG[facility] LABOR[facility] Gross Description 1. Vulva Received in formalin and labeled with the patient's name, date of , MRN, and lower left is a 0.3 cm in diameter by 0.2 cm in length wrinkled skin fragment with a pearly pink-white skin surface. The margin is inked black and the fragment is submitted in toto in 1A. 2. Vulva Received in formalin and labeled with the patient's name, date of , MRN, and upper left is a 0.3 cm in diameter by 0.2 cm in length skin punch with a pearly, glistening white skin surface. The deep margin is inked black and the fragment is submitted in toto in 2A. [facility] 5 11:30 AM EDT [facility]AT[facility] Gross Description User Grossing complete by Meenakshi Ramirez on 06/24/2025 4:19 PM [facility] 5 11:30 AM EDT [facility] Embedded Images [facility] 5 11:30 AM EDT [facility] Disclaimer Some of these tests were developed and their performance characteristics determined by the Immunoperoxidase/Hist ology Laboratory of [facility]. They have not been cleared or approved by the U.S. Food and Drug Administration. The FDA has determined that such clearance or approval is not necessary. This test is used for clinical purposes. It should not be regarded as investigational or for research. This laboratory is certified under the Clinical Laboratory Improvement Amendments of 1988 (CLIA-88) as qualified to perform high complexity clinical laboratory testing. [facility] 5 11:30 AM EDT [facility] Resulting Agency Case was signed out at [facility], Department of Pathology, [employer] 3 CLIA [id number] [facility] 5 11:30 AM EDT [facility] Abnormal Yes(A) (none) [facility] 5 11:30 AM EDT [facility] Report Header Surgical Pathology Report Case: [id number] Authorizing Provider: Maryam Wills MD Collected: 06/24/2025 1427 Ordering Location: [facility] Received: 06/24/2025 1602 [facility] [employer] Oncology Pathologist: Natasha Spivey MD Specimens: 1) - Vulva, Lower Left 2) - Vulva, Upper Left 11:30 AM EDT [facility] ANATOMIC PATHOLOGY LABORAT[facility] Tissue Specimen from vulva / Unknown Non-Blood Collection / Unknown 06/24/2025 2:27 PM EDT 06/24/2025 4:02 PM EDT Tissue specimen (specimen) Specimen from vulva / Unknown 06/24/2025 2:27 PM EDT 06/24/2025 4:02 PM EDT Maryam Wills MD LAB PATHOLOGY/CYTOLOGY ORDERA BLES Final Result [facility] ANATOMIC PATHOLOG[facility] LABORATORY [address] [place] [address], [facility] ANATOMIC PATHOLOGY LABORATORY [address] [place] [id number] * (ABNORMAL) Comprehensive Metabolic Panel (08/04/2024 12:39 PM EDT) NA 141 135 - 145 mmol/L 08/04/2024 1:22 PM EDT [facility] CLINICAL PATHOLOGY LABORATORY K 4.6 3.5 - 5.3 mmol/L 08/04/2024 1:22 PM EDT [facility] CL[facility]ICAL PATHOLOGY LABOR[facility] Cl 106 98 - 107 mmol/L 08/04/2024 1:22 PM EDT [facility] PATHOLOGY LABORATORY CO2 24 22 - 32 mmol/L 08/04/2024 1:22 PM EDT [facility] CL[facility]ICAL PATHOLOGY LAB[facility] Anion Gap 11 5 - 15 08/04/2024 1:22 PM EDT [facility] PATHOLOGY LAB[facility] Glucose 110(H) 65 - 99 mg/dL 08/04/2024 1:22 PM EDT [facility] PATHOLOG[facility] Creatinine 0.89 0.50 - 1.20 mg/dL 08/04/2024 1:22 PM EDT [facility] PATHOLOGY [facility] Calcium 9.4 8.6 - 10.5 mg/dL 08/04/2024 1:22 PM EDT [facility] PATHOLOG[facility] Total Protein 7.7 6.0 - 8.0 g/dL 08/04/2024 1:22 PM EDT [facility] PATHOLOG[facility] Albumin 4.4 3.5 - 5.2 g/dL 08/04/2024 1:22 PM EDT [facility] PATH[facility] Bilirubin, Total 0.4 0.2 - 1.2 mg/dL 08/04/2024 1:22 PM T [facility] PATH[facility] Alkaline Phosphatase 81 35 - 129 U/L 08/04/2024 1:22 PM EDT [facility] AST 25 10 - 40 U/L 08/04/2024 1:22 PM T [facility] PATH[facility] ALT 17 10 - 40 U/L 08/04/2024 1:22 PM T [facility] PATH[facility] BUN 15 7 - 23 mg/dL 08/04/2024 1:22 PM T [facility] PATH[facility] eGFR 73 >=60 mL/min/1. 73m2 08/04/2024 1:22 PM T [facility] PATHOLOG[facility] Comment:The estimated glomer ular filtration rate (eGFR) is calculated using a new formula developed by the NKF-ASN task force to eliminate race-based correction factors. The new formula uses serum/plasma creatinine, age, and gender to determine eGFR. A value below 60mls/min might indicate kidney disease and will be flagged. For additional information, see Roth et al, Am J Kidney Dis. 2021;79(2):268- 288, A Unifying Approach for GFR estimation: Recommendations of the NKF-ASN Task Force on Reassessing the Inclusion of Race in Diagnosing Kidney Disease . Globulin, Total 3.3 2.1 - 4.2 g/dL 08/04/2024 1:22 PM T [facility] PATHOLOG[facility] A/G Ratio 1.3(L) 1.5 - 3.0 08/04/2024 1:22 PM T [facility] CL[facility]ICAL PATHOLOGY LAB[facility] Blood Structure of peripheral vein / Unknown Venipuncture / Unknown 08/04/2024 12:39 PM EDT 08/04/2024 12:48 PM EDT us Jessica Deleon LAB BLOOD ORDERAB LES Final Result [facility] CLINICAL PATHOLOGY LABORATORY [address] [place] [address], [place] * Pap (05/15/2023 4:12 PM EDT) Specimen Adequacy Satisfactory for evaluation [facility] 3 11:34 AM EDT [employer] [facility] ANATOMIC PATHOLOGY LABORATORY Pathologist Cytology Interpretation Negative for intraepithelial lesion or malignancy. [facility] 3 11:34 AM EDT [employer] [facility] ANATOMIC PATHOLOGY LABORATORY at 1134 EDT Comment:This is the result o f a morphological screening test with an inherent possibility of a false negative interpretation. Human Relations Professor Statement This Pap test was examined by the [email or web address] [facility], [email or web address], [place], [place]. This Pap test was examined in accordance with the [facility] Cytopathology Laboratory written policy, which incorporates all CLIA mandates. Current screening guidelines can be found in [place]: A Cancer Journal for Clinicians 2020;70:321-346. Current ASCCP management guidelines for abnormal Pap tests are published in the Journal Lower Genital Tract Disease Volume 2020;24:102-131. [facility] 3 11:34 AM EDT [employer] ANATOMIC PATHOLOGY LABORATORY Clinical History history of vulvar ca [facility] 3 11:34 AM EDT [employer] [facility] ANATOMIC PATHOLOGY LABORATORY Resulting Agency Case was signed out at [facility], Department of Pathology, [employer] 3 CLIA [id number] [facility] 3 11:34 AM EDT [employer] ANATOMIC PATHOLOGY LABORATORY Report Header Gynecologic Cytology Report Case: [id number] Authorizing Provider: Maryam Wills MD Collected: 05/15/2023 1612 Ordering Location: [facility] Received: 05/15/2023 1757 [facility] [employer] Oncology First Screen: Flor Cosme Specimen: Screening ThinPrep Pap, Cervix/Endocervix 11:34 AM EDT [employer] [facility]AT[facility] PATHOLOG[facility] LABOR[facility] Brushing Cervix uteri structure / Unknown Non-Blood Collection / Unknown 05/15/2023 4:12 PM EDT 05/15/2023 5:57 PM EDT Maryam Wills MD LAB PATHOLOGY/CYTOLOGY ORDERA BLES Final Result [employer] [facility] ANATOMIC PATHOLOGY LABORATORY [address] [place] [address], * Microalbumin, Random Urine with Creatinine (02/18/2023 11:02 AM EDT) Microalbumin, Urine <1.0 mg/dL 02/18/2023 4:02 PM EDT [facility] CLINICAL PATHOLOGY LABORATORY Creatinine, Urine 37 15 - 278 mg/dL 02/18/2023 4:02 PM EDT [facility] CLINICAL PATHOLOGY LABORATORY Microalb/Creat Ratio, Random Urine 02/18/2023 4:02 PM EDT [facility] CLINICAL PATHOLOGY LABORATORY Comment: < 1.0 mcg/mgCr Microalbumin Reference Range: Normal <30 mcg/mg Creatinine Microalbuminuria 30-300 mcg/mg Creatinine Clinical Albuminuria >300 mcg/mg Creatinine Reference: ADA Guideline. Diabetes Care. 2004;27 (suppl 1) Urine Voided urine specimen / Unknown Non-Blood Collection / Unknown 02/18/2023 11:02 AM EDT 02/18/2023 11:50 AM EDT Luke Jose LAB URINE ORDERABLES Final Resul t [facility] CLINICAL PATHOLOGY LABORATORY [address] [place] [address], * (ABNORMAL) Hemoglobin A1c (10/06/2021 6:11 AM EST) Hemoglobin A1C 5.7(H) <5.7 % of total Hgb 10/06/2021 11:17 AM [email or web address] Comment: For someone without known diabetes, a hemoglobin A1c value between 5.7% and 6.4% is consistent with prediabetes and should be confirmed with a follow-up test. For someone with known diabetes, a value <7% indicates that their diabetes is well controlled. A1c targets should be individualized based on duration of diabetes, age, comorbid conditions, and other considerations. This assay result is consistent with an increased risk of diabetes. Currently, no consensus exists regarding use of hemoglobin A1c for diagnosis of diabetes for children. eAG (MG/DL) 117 mg/dL 10/06/2021 11:17 AM EST [employer] eAG (MMOL/L) 6.5 mmol/L 10/06/2021 11:17 AM [email or web address] Blood Structure of peripheral vein / Unknown Venipuncture / Unknown 10/06/2021 6:11 AM EST 10/06/2021 6:31 AM EST [facility] - 10/06/2021 11:17 AM EST [facility] Received Date:[id number] us Paula LICEA LAB BLOOD ORDERABLES Final Resul t LAURIE ENRIQUEZ [address] [facility] [address], [place] [address], [facility] [address] [facility] [address], [place] [address], from Last 3 Months or Most Recently Relevant to Health Maintenance Additional Health Concerns Active Problems Noted Date Diagnosed Date Autogenerated Problem 07/15/2025 Insurance [facility] FED[employer]AL Advance Directives Documents on File Type Date Recorded Patient Net Development Manager Expl anation Health Care Proxy 05/30/2019 8:45 AM HCP * Full Code (Latest Code Status on File) Date Activated Date Inactivated Comments 10/05/2021 7:09 PM 10/06/2021 2:26 PM * Full Code Date Activated Date Inactivated Comments 10/05/2021 3:25 PM 10/05/2021 7:08 PM * Full Code Date Activated Date Inactivated Comments 10/05/2021 10:17 AM 10/05/2021 3:25 PM * Full Code Date Activated Date Inactivated Comments 11/12/2020 6:20 AM 11/12/2020 2:33 PM * Full Code Date Activated Date Inactivated Comments 06/06/2019 9:07 AM 06/06/2019 3:46 PM Healthcare Agents on File Name Relationship Healthcare Agent Relationship Communication Makayla Quick Spouse Health Care Agent Care Teams Furniture Sales Consultant Relationship Specialty Start Date End Date Luke Jose [facility] [place] [address] PCP - General Internal Medicine 04/23/19
--- OUTSIDE RECORDS SUMMARY | 2025-08-21 07:44 | XMS_ITS | Encounter Summary ---
Author Organization [facility] Address [address] [place] [address] Care Team Providers Care Collaborative Teacher Name Role Phone Luke Jose Primary Care Provider Unavailabl e Encounter Details Date Type Department Care Team (Late st Contact Info) Description 08/14/2025 Telephone [facility] 4th floor Cardiology Medicine [address] [place], [place] [phone] Technical Support Manager: Meng Lagos II, MD [address] [place] [address] Social History Tobacco Use Types Packs/Day Years [...] encounter Miscellaneous Notes * Telephone Encounter - Bryson Cruz - 08/14/2025 10:39 AM EST Pt needs 1 yr follow up with with an echo linked to aleyda documented in this encounter Plan of Treatment Upcoming Encounters Date Type Department Care Team (Latest Contact Info) Description 08/28/2025 7:15 AM EST Hospital Encounter [facility] Operating Room [address] [place] [address] Maryam Wills MD [address] [place] [address] 08/28/2025 7:15 AM EST Anesthesia Event [facility] Operating Room [address] [place] [address] Jenn Whyte DO [address] [place] [address] Jace Vargas PA [address] [place] [address] 08/28/2025 7:15 AM EST - 08/28/2025 9:05 AM EST Surgery [facility] Operating Room [address] [place] [address] Maryam Wills MD [address] [place] [address] EXCISION OF LEFT VULVAR SKIN AND SUBCUTANEOUS TISSUE WITH SIMPLE REPAIR [14900 (CPT )] 09/03/2025 2:00 PM EST Follow-Up [facility] NURSE EMERGENCY ROOM Oncology [address] [place] [address] Technical Support Manager: Marjorie Cantu NP [address] [place] [address] [place] [address] 09/23/2025 1:15 PM EST Follow-Up [facility] NURSE EMERGENCY ROOM Oncology [address] [place] [address] Technical Support Manager: Monica De La Torre/13/2026 1:15 PM EST Office Visit [facility] NURSE EMERGENCY ROOM Oncology [address] [place] [address] Technical Support Manager: Monica Wilson 11/25/2025 11:45 AM EST Follow-Up [facility] NURSE EMERGENCY ROOM Oncology [address] [place] [address] Technical Support Manager: Maryam Greenberg MD [address] [place] [address] 08/27/2026 9:30 AM EST Appointment [facility] Cardiac Ultrasound [address] [place] [address] 08/27/2026 10:00 AM EST Follow-Up [facility] 4th floor Cardiology Medicine [address] [place] [address] Technical Support Manager: Meng Lagos II, MD [address] [place] [address] Scheduled Procedures Name Priority Associated Diagnoses Date/Ti me EXCISION, SKIN AND SUBCUTANEOUS TISSUE WITH SIMPLE REPAIR Differentiated vulvar intraepithelial neoplasia (dVIN) 08/28/2025 7:15 AM EST COLPOSCOPY OF VULVA Differentiated vulvar intraepithelial neoplasia (dVIN) 08/28/2025 7:15 AM EST documented as of this encounter Goals Goal Patient Goal Type Associated Problems Recent Progress Patient-Stated? Author Autogenerat ed Goal Care Plan Autogenerated Problem No Codie Jolie documented as of this encounter Visit Diagnoses Not on filedocumented in this encounter Additional Health Concerns Active Problems Noted Date Diagnosed Date Autogenerated Problem 07/15/2025 documented as of this encounter Care Teams Collaborative Teacher Relationship Specialty Start Date End Date Luke Jose [facility] [place] [address] PCP - General Internal Medicine 04/23/19 documented as of this encounter
--- OUTSIDE RECORDS SUMMARY | 2025-08-21 07:45 | XMS_ITS | Encounter Summary ---
Author Organization [facility] Address [address] [address] Phone Care Team Providers Care Railroad Supervisor Of Engines Name Role Phone Luke Jose MD Primary Care Provider [phone] Encounter Details Date Type Department Care Team (Late st Contact Info) Description 07/06/2018 Procedure [facility] [address] [place] [address] Social History Tobacco Use Types Packs/Day Years [...] Description 12/23/2025 11:40 AM EDT Office Visit [facility] [address] [place] [address] [place] [address] Magda Gee MD, MPH [address] [place] [address] [email or web address] documented as of this encounter Visit Diagnoses Not on filedocumented in this encounter Care Teams Railroad Supervisor Of [employer]ines Relationship Specialty Start Date End Date Luke Jose MD [address] [place] [phone] PCP - General Internal Medicine 12/30/15 documented as of this encounter Additional Source Comments The information contained in this document represents components of the legal health record. It is not the complete legal health record.[facility]
== END 2025-08-21 07:40 | disposition home or self-care (01) ==
LOC: HO.MAMMO 07:39
PROVIDERS: PCP Internal Medicine; Visit Provider Internal Medicine
DX: Z12.31 Encounter for screening mammogram for malignant neoplasm of breast (principal)
CPT/HCPCS: 77063; 77067

== ENCOUNTER → 2025-08-21 07:45 | Outpatient (BNV) | payer BC, SELFPAY | PROVIDERS: PCP Internal Medicine; Visit Provider Internal Medicine | DX: Z12.31 Encounter for screening mammogram for malignant neoplasm of breast (principal) | CPT/HCPCS: 77063; 77067 ==